=== PATIENT | male | born 1960 | race Caucasian/White ===

== ENCOUNTER 2016-07-21 12:56 | Day surgery (SDC) | payer BC ==
[2016-07-21 13:20] VITALS: BP 159/97; PULSE 85; RESP 19; TEMP 98.1; O2SAT 97
[2016-07-21] MEDS ORDERED: ULTR50TA5 PO (13:21)
[2016-07-21] MEDS ORDERED: FISHCAP4 PO (13:21)
[2016-07-21 13:39] VITALS: BP 140/93; PULSE 83; RESP 18; TEMP 98.1; O2SAT 97
--- NOTE | 2016-07-21 16:02 | RADRPT ---
EXAM DATE/TIME: 07/21/2016 13:41 [facility] COMPARISON: No previous studies available for comparison. INDICATIONS : Right knee pain and swelling. MEDICAL HISTORY : Deep venous thrombosis. SURGICAL HISTORY : Right total knee replacement. Rotator cuff repair. Carpal tunnel release. Bicep repair. Achilles tend on repair. ENCOUNTER: Initial ACUITY: > 1 yr PAIN SCORE: 2/10 LOCATION: Right knee. FLUID: Total volume of 7 cc of cloudy, yellow fluid was removed. Fluid was sent to lab for ordered studies. Post procedure scanning reveals no hematoma or other complication. TECHNIQUE: 1. Ultrasound guidance for needle aspiration. 2. Aspiration. The risks, benefits, and alternatives to ultrasound guided aspiration were explained to the patient i n detail including the risk of bleeding and infection. Written and verbal informed consent was obtai neena. With the patient on the ultrasound table, ultrasound imaging was used to select the most appropriate approach for aspiration. Overlying skin was prepped and draped in the usual sterile fashion and with local anesthetic a dermatotomy was made with an 11 blade scalpel. A catheter was introduced into th e cavity and fluid was collected. CONCLUSION: Uncomplicated ultrasound guided aspiration. Jt Aaron MD on July 21, 2016 at 16:00 Board Certified Radiologist. This report was verified electronically.
[2016-07-21 17:42] LABS: WBC, SYNOVIAL FLUID 16150 /MM3 (0-200)
== END 2016-07-21 15:00 | disposition home or self-care (01) ==
LOC: HRAD 12:56 → HRIP 13:00 → HRAD 15:00
PROVIDERS: ATTEND Orthopaedic Surgery
DX: M25.561 Pain in right knee (principal); T84.84XD Pain due to internal orthopedic prosthetic devices, implants and grafts, subsequent encounter; M25.461 Effusion, right knee
CPT/HCPCS: 10160; 20611; 76942; 87070; 87205; 89051; C1729

== ENCOUNTER 2017-07-18 09:52 | Inpatient (IN) | payer BC ==
[~2017-07-18] VITALS: Ht 177.8 cm; Wt 90.9 kg
[~2017-07-18 09:52] MED LIST: FISHCAP4 PO; TRAM50 PO; XARE20TA PO
[2017-07-18] MEDS ORDERED: SODIUM CHLORID 0.9% 500 ML IV PRN (10:15)
[2017-07-18] MEDS ORDERED: LACTATED RINGER'S 1000 ML IV PRN (10:15)
[2017-07-18] MEDS ORDERED: METOPROLOL TARTRATE 25 MG TAB PO PRN (10:15)
[2017-07-18] MEDS ORDERED: CHLORHEXIDINE GLUCONATE 2 % 1 PACK (2 CLOTHS) TOPICAL PRN (10:15)
[2017-07-18] MEDS ORDERED: ROPIVACAINE PERI-ARTICULAR INJECTION. P-ARTICULR SCH ×5 (10:15)
[2017-07-18] MEDS ORDERED: CHLORHEXIDINE GLUCONATE 4% SOLN 120 ML BTL TOPICAL SCH (10:15)
[2017-07-18] MEDS ORDERED: INSULIN HUMAN REGULAR 1,000 UNITS/10 ML VIAL SQ PRN (10:15)
[2017-07-18] MEDS ORDERED: POVIDONE IODINE 5% (ANTISEPSIS KIT) 4 APPLICATIONS EACH NARE PRN (10:15)
[2017-07-18] MEDS ORDERED: TOBRAMYCIN 1200 MG VIAL (for ortho/sterile core) OTHER ONE (10:40)
[2017-07-18] MEDS ORDERED: GENTAMICIN SULFATE 80 MG/2 ML VIAL ONE (10:40)
[2017-07-18] MEDS ORDERED: PROPOFOL 200 MG/20 ML AMP IV ONE (12:00)
[2017-07-18] MEDS ORDERED: ONDANSETRON HCL 4 MG/2 ML VIAL IV ONE (12:00)
[2017-07-18] MEDS ORDERED: LIDOCAINE HCL 1% PF 5 ML SYRINGE OTHER ONE (12:00)
[2017-07-18] MEDS ORDERED: ROCURONIUM INJ 50 MG/5 ML SYRINGE IV PUSH ONE (12:00)
[2017-07-18] MEDS ORDERED: PHENYLEPH/NS 1000 MCG/10 ML SYR IV ONE (12:00)
[2017-07-18] MEDS ORDERED: VANCOMYCIN HCL 1000 MG VIAL ONE ×3 (12:09→14:32)
[2017-07-18] MEDS ORDERED: ceFAZolin INJ 1,000 MG VIAL ONE (12:09)
[2017-07-18] MEDS ORDERED: BUPIVACAINE LIPOSOME PF 1.3% 20 ML VIAL ONE (13:43)
[2017-07-18] MEDS ORDERED: MIDAZOLAM HCL 2 MG/2 ML VIAL ONE (14:46)
[2017-07-18] MEDS ORDERED: MORPHINE SULFATE 4 MG/ML INJ ONE (14:46)
[2017-07-18] MEDS ORDERED: DO NOT ADM ANY ANTICOAGULANT DRUGS PRN (15:41)
[2017-07-18] MEDS ORDERED: WALKER WHEELS/F1 MIS (15:49)
--- NOTE | 2017-07-18 15:51 | HHI.FF ---
Face to Face Verification Diagnosis: (1) Infection of total knee replacement (2) Status post right partial knee replacement Physical Therapy Gait training, Transfer training, bed to chair Knee: Total knee, Other (50% wt bearing RLE ), Protocol: Right Right LE Weight Bearing: Partial WB 50% Left LE Weight Bearing: WB as tolerated Nursing RN: 3 days/week x 2 weeks Nursing: Dressing changes (clean with alcohol and apply dry sterile dressing ) Additional Instructions Pt/INR q Tuesday and for 2 weeks Goal INR 1.5-1.8 After two weeks, will resume pre op [place] I have seen patient Govind Cagle on 07/18/17. My clinical findings support the need for the requested home health care services because: High risk of falls I certify that my clinical findings support that this patient is homebound because: Post-op weakness Mike Dewey MD Jul 18, 2017 15:51
[2017-07-18] MEDS ORDERED: *MEPERIDINE 25 MG INJ VIAL PERIprocedural Use ONLY ONE (16:21)
--- NOTE | 2017-07-18 16:27 | RADRPT ---
EXAM DATE/TIME: 07/18/2017 16:01 [facility] COMPARISON: No previous studies available for comparison. INDICATIONS : Right knee prostheses removal and antibiotic placement. MEDICAL HISTORY : Deep venous thrombosis. SURGICAL HISTORY : Total knee replacement, right. ENCOUNTER: Initial ACUITY: 1 day PAIN SCORE: Non-responsive. LOCATION: Right Knee. FINDINGS: AP and lateral views of the right knee were obtained and demonstrate the patient status post arthropl asty. Femoral and tibial components are intact and in alignment. The components are cemented. There a re numerous small radiopaque beads present surrounding the joint space and in the suprapatella bursa region. There is diffuse osteopenia. CONCLUSION: Post surgical changes and placement of numerous small radiopaque beads. Ad Barrera MD on July 18, 2017 at 16:23 Board Certified Radiologist. This report was verified electronically.
--- NOTE | 2017-07-18 16:31 | MP ---
cc: Mike Dewey MD,Diego Hanson MD,Jaquelin AMBROCIO DATE OF OPERATION: 07/18/2017 PREOPERATIVE DIAGNOSES: 1. 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 2. Status post right total knee arthroplasty, 02/09/2012. 3. History of venous stasis dermatitis with cellulitis. POSTOPERATIVE DIAGNOSES: 1. 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 2. Status post right total knee arthroplasty, 02/09/2012. 3. History of venous stasis dermatitis with cellulitis. PROCEDURE PERFORMED: Right knee removal of total knee arthroplasty; incision and drainage of deep abscess, opening of distal femur and proximal tibial bone; insertion of antibiotic spacer prostheses. SURGEON: Mike Dewey MD VARNISH THINNER: Maria Victoria Purcell PA-C TOURNIQUET TIME: 1 hour and 47 minutes at 250 mmHg. SPECIMENS: Multiple. See the chart. ESTIMATED BLOOD LOSS: 100 mL. COMPLICATIONS: None. ANESTHESIA: General, adductor canal regional block, intra-articular local block. PROCEDURE: My habilitation assistant, Maria Victoria Purcell PA-C was present for the entire surgical case. She was medically necessary for the entire case because of the complexity of the case and to facilitate the performance of the procedure. The LAUNDERER HAND was at the back table was not of skill set for this case to manipulate the instruments; e.g., the multiple different types of soft tissue retractors, removal of the total knee arthroplasty prosthesis, and insertion of the Remedy femoral component and the Remedy tibial component with the bone cement and also the insertion of the calcium sulfate antibiotic beads. The patient was brought to the operating room, had satisfactory anesthesia by the department of anesthesia. Right lower extremity was prepped and draped in the usual manner. The extremity was exsanguinated by elevation and tourniquet inflated to 250 mmHg. Patient had a moderately large anterior wound that had just started draining last night. This was anteromedial to the patella. This was surgically excised elliptically. Sent to pathology for final histological diagnosis. Then further anterior and further proximal and distal extension of the wound was made. Paramedian capsulotomy was performed. The patient was found to have a grossly loose, failed patellar component. This was removed, as was the underlying bone cement. Surrounding soft tissues were sent for final microbiology. This was for Gram stain, aerobic and anaerobic cultures and sensitivities, and fungal smear and culture. Synovitis was in the suprapatellar pouch. The pouch was surgically excised. This was also sent for Gram stain, aerobic, anaerobic culture and sensitivities, fungal smear and cultures. Using the [place] revisional total joint arthroplasty system, flexible osteotomes were used to go around the distal femur and the femoral component was removed without difficulty. No bone was taken off with the prosthesis. The patient was found to have a large cavernous lesion in the pegged portion of the medial femoral condyle and to a lesser degree on the lateral femoral condyle. This was a posterior stabilized type femoral component. Bone cultures were taken from the distal femur. Again, this was sent for Gram stain, aerobic, anaerobic culture and sensitivities with fungal smear and culture. The soft tissue dissection was carried around the proximal tibia and the tibial component was removed without difficulty. Again, soft tissue bone cultures were taken from the proximal tibia. They were sent for aerobic and anaerobic cultures and sensitivities and fungal smear and culture. All loose bone cement and all well-fixated bone cement was meticulously removed from the proximal tibia and also from the distal femur and the undersurface of the patella. Extensive soft tissue debridements were also made with complete synovectomy. The knee was then irrigated with 9000 mL of sterile saline antibiotic solution using Waterpik irrigation system. At this time, it was felt to use the Osteo[employer]edies spacer with a distal femoral component, which was a medium. This is in the proximal tibial component, which was also medium. Two packages of bone cement, Unite AB bone cement with added 2 grams of vancomycin were made for the cement. First, the tibial component was cemented and then followed by the femoral component. The bone cement was allowed to harden for 12 minutes. All excess bone cement was removed. Also added calcium sulfate antibiotic beads, added additional 2 grams of vancomycin. These were then placed adjacent to the prosthesis medially and laterally and then the suprapatellar pouch, but we stayed out of the articulating component of the revised knee arthroplasty. The wound was closed in a routine manner. The extensor mechanism and quadriceps mechanism was repaired using multiple interrupted #1 PDS suture. The skin and subcutaneous tissue was closed in layers using #1 Prolene and 2-0 nylon. Tourniquet was deflated. Sterile dressings were applied. The patient tolerated the procedure well and left for the recovery room in stable and satisfactory condition. MD TYRON Moss/BULMARO , 03:37 PM , 04:29 PM
[2017-07-18] MEDS ORDERED: ONDANSETRON HCL 4 MG/2 ML VIAL IVP PRN (16:45)
[2017-07-18] MEDS ORDERED: ACETAMINOPHEN/HYDROcodone 325 MG/7.5 MG TAB PO PRN (16:45)
[2017-07-18] MEDS ORDERED: ALUMINUM/MAGNESIUM/SIMETH 30 ML CUP PO PRN (16:45)
[2017-07-18] MEDS ORDERED: *morphine SULFATE 4 MG/ML PERIprocedure ONLY ONE ×2 (16:58→18:11)
[2017-07-18] MEDS ORDERED: Post-op Orders (for Pharmacy) XX ONE (17:00)
[2017-07-18] MEDS: ACETAMINOPHEN/HYDROcodone 325 MG/7.5 MG TAB PO PRN ×2 (17:03→20:22)
[2017-07-18] MEDS: LACTATED RINGER'S 1000 ML INJ 1,000 ML IV SCH (17:09)
[2017-07-18] MEDS ORDERED: ZOLPIDEM TARTRATE 5 MG TAB PO PRN (21:00)
[2017-07-18 23:40] VITALS: BP 114/60; PULSE 88; RESP 18; TEMP 98.6; O2SAT 98
--- NOTE | 2017-07-19 00:03 | EKG ---
Date Performed: 07/18/2017 Time Performed: 10:22:42 PTAGE: 57 years EKG: Sinus rhythm NORMAL ECG NO PREVIOUS TRACING DOCTOR: Tena Castellanos Interpretating Date/Time 07/18/2017 23:59:26
[2017-07-19] MEDS: ACETAMINOPHEN/HYDROcodone 325 MG/7.5 MG TAB PO PRN ×5 (02:31→20:04)
[2017-07-19 03:31] VITALS: BP 134/70; PULSE 97; RESP 18; TEMP 98.4; O2SAT 98
[2017-07-19] MEDS: MORPHINE SULFATE 8 MG/ML INJ IV PUSH PRN ×5 (03:56→21:48)
[2017-07-19] MEDS: LACTATED RINGER'S 1000 ML INJ 1,000 ML IV SCH ×2 (04:35→21:50)
[2017-07-19 06:00] LABS: INTERNATIONAL NORMALIZED RATIO 1.1 RATIO; PROTHROMBIN TIME - PATIENT 10.9 SEC (9.8-11.6)
[2017-07-19 08:00] VITALS: BP 124/64; PULSE 88; RESP 17; TEMP 98.1; O2SAT 95
--- NOTE | 2017-07-19 11:10 | PD.ORT.PN ---
Subjective Subjective Remarks POD#1 R Knee removal TK; I&D; Insertion antibiotic spacer/prosthesis C/O post-op pain No chest pain;no sob Explained at length to patient,,and daughter operative findings and planned post operative treatment Objective Vitals Vital Signs Date Time Temp Pulse Resp B/P (MAP) Pulse Ox O2 Delivery O2 Flow Rate FiO2 07/19/17 08:00 98.1 88 17 124/64 (84) 95 07/19/17 03:31 98.4 97 18 134/70 (91) 98 07/18/17 23:40 98.6 88 18 114/60 (78) 98 07/18/17 21:58 93 20 116/62 (80) 94 Room Air 07/18/17 21:54 16 07/18/17 21:00 93 20 113/58 (76) 95 Room Air 07/18/17 20:30 93 20 113/58 (76) 95 Room Air 07/18/17 20:15 95 20 116/72 (87) 95 Room Air 07/18/17 20:00 98.0 96 16 112/77 (89) 98 Nasal Cannula 2 07/18/17 19:00 97 16 113/70 (84) 100 Nasal Cannula 2 07/18/17 18:00 98.1 101 20 141/81 (101) 100 Nasal Cannula 2 07/18/17 17:00 95 15 155/87 (109) 99 Nasal Cannula 2 07/18/17 16:30 100 17 139/80 (99) 92 Nasal Cannula 4 07/18/17 16:15 101 16 154/95 (114) 93 Nasal Cannula 4 07/18/17 16:00 104 17 144/87 (106) 93 Nasal Cannula 4 07/18/17 15:41 98.2 102 20 142/91 (108) 92 Simple Mask 6 I/O 07/18/17 07/18/17 07/18/17 07/19/17 07/19/17 07/19/17 07:00 15:00 23:00 07:00 15:00 23:00 Intake Total 2150 ml 480 ml 100 ml Output Total 50 ml Balance 2100 ml 480 ml 100 ml Intake Oral 150 ml 480 ml IV Total 2000 ml 100 ml Output Estimated Blood Loss 50 ml # Voids 1 # Bowel Movements 0 Other Results Laboratory Tests Test 07/19/17 05:32 Prothromb Time International Ratio 1.1 RATIO Prothrombin Time 10.9 SEC (9.8-11.6) Imaging Last 24 hours Impressions Knee X-Ray 07/18/17 1533 Signed Impressions: Service Date/Time: Tuesday, July 18, 2017 16:01 - CONCLUSION: Post surgical changes and placement of numerous small radiopaque beads. Ad Barrera MD Objective Remarks N/V intact No calf tenderness;neg quintin's Dressings dry Assessment & Plan Assessment and Plan Ortho stable Coumadin,TEDS for DVT/PE prophylaxsis Await ID consultations/evaluations PT/Rehab; R LE 50% WBA Poss PICC line in future per ID Mike Dewey MD Jul 19, 2017 11:10
[2017-07-19 12:00] VITALS: BP 139/80; PULSE 92; RESP 17; TEMP 98.4; O2SAT 94
[2017-07-19] MEDS ORDERED: VANCOMYCIN INJ 1,000 MG in SODIUM CHLOR 0.9% 250 ML INJ 250 ML IV ONE (13:00)
[2017-07-19] MEDS ORDERED: Vancomycin Consult Pharmacy 1 EA OTHER SCH (13:00)
--- NOTE | 2017-07-19 13:00 | PD.CONS ---
History of Present Illness Service Infectious disease Consult Requested By Dr. Mike Dewey Reason for Consult Evaluate patient with probable infected right total knee arthroplasty, assist with antibiotic management Primary Care Physician Diego Butts MD Diagnoses: History of Present Illness Patient seen and examined. Records reviewed. Patient is a 57-year-old male, admitted to the hospital for surgery on his right knee. He has had total knee arthroplasty in 2011, and apparently he's always had swelling in his right knee. Has not given him any problem. Last year he has had problem with stasis dermatitis in his right lower extremity and has been treated for cellulitis. He was going to the wound care center in [place], with no significant improvement, and switch to the [facility], and there was resolution of his problem. The patient since that time he started noticing a swollen area or lump on his right knee around February. He went to an orthopedic surgeon, and apparently had excision of the mass, or cyst around March. He also has had multiple aspirations of the cyst, with rapid reaccumulation of the fluid. The area would be painful, but he has not seen any redness. He denies any fever or chills or sweats. Has not had any respiratory, GI or any urinary complaints. He has not really had any trauma or fall resulting in injury to his right knee after he had his arthroplasty. He has been on several antibiotics including Keflex and Cipro. The last time he was on antibiotic was most likely more than 2 weeks ago. There was an outpatient wound culture from May that had MRSA, and pseudomonas aeruginosa. Last week he had complete drainage of the cyst, and cultures of that are negative so far. He had reaccumulation of the fluid, and the patient was brought into the hospital for further management. He underwent surgery and had removal of the prosthesis, as well as placement of an antibiotic spacer. He had some blood work preop, and he is WBC is normal, sedimentation rate is 19. He is afebrile currently. Infectious disease consultation has been requested to evaluate the patient and assist with antibiotic management. Review of Systems Constitutional: DENIES: Fever, Chills, Night Sweats Eyes: DENIES: Eye pain Ears, nose, mouth, throat: DENIES: Nasal discharge, Oral lesions, Throat pain, Hoarseness, Sinus Pain Respiratory: DENIES: Cough, Shortness of breath Cardiovascular: DENIES: Chest pain, Palpitations, Syncope, Dyspnea on Exertion Gastrointestinal: DENIES: Abdominal pain, Constipation, Diarrhea, Nausea, Vomiting Genitourinary: COMPLAINS OF: Urgency, DENIES: Hematuria, Dysuria, Nocturia Musculoskeletal: COMPLAINS OF: Joint pain, Joint Swelling, DENIES: Neck pain Integumentary: DENIES: Rash Neurologic: DENIES: Localized weakness Psychiatric: DENIES: Hallucinations (`) Past Family Social History Allergies: Coded Allergies: No Known Allergies (Verified Allergy, Unknown, 07/18/17) Past Medical History PE DVT Past Surgical History Laser procedure on the right leg Bilateral carpal tunnel release Right total knee arthroplasty Right knee meniscectomy Bilateral shoulder rotator cuff repairs Active Ordered Medications Current Medications Medications (Trade) Dose Ordered Sig/Pat Route Start Time Stop Time Status Last Admin Lactated Ringer's 1,000 ml @ 30 mls/hr Q24H PRN IV 07/18/17 10:15 07/21/17 10:14 Sodium Chloride 500 ml @ 30 mls/hr [id number] PRN IV 07/18/17 10:15 07/21/17 10:14 (Lopressor) 25 mg [employer] PRN PO 07/18/17 10:15 07/21/17 10:14 (Betadine 5% Antisepsis Kit) 1 applic [employer] PRN EACH NARE 07/18/17 10:15 07/21/17 10:14 (Chlorhexidine 2% Cloth) 3 pack [employer] PRN TOPICAL 07/18/17 10:15 07/21/17 10:14 (NovoLIN R INJ) See Protocol Table ... [employer] PRN SQ 07/18/17 10:15 07/21/17 10:14 (Hibiclens 4% Top Soln) 1 applic ONCE TOPICAL 07/18/17 10:15 07/21/17 10:14 Lactated Ringer's 1,000 ml @ 80 mls/hr [id number] IV 07/18/17 16:45 07/18/17 17:09 (Morphine Inj) 5 mg Q3H PRN IV PUSH 07/18/17 16:45 07/19/17 12:32 (Willow 7.5-325 Mg) 1 tab Q4H PRN PO 07/18/17 16:45 (Willow 7.5-325 Mg) 2 tab Q4H PRN PO 07/18/17 16:45 07/19/17 10:25 (Zofran Inj) 4 mg Q6H PRN IVP 07/18/17 16:45 (Mag-Al Plus Susp Liq) 30 ml Q6H PRN PO 07/18/17 16:45 (Ambien) 5 mg HS PRN PO 07/18/17 21:00 Miscellaneous Information ALL NURSING DEPARTME... UNSCH PRN .XX 07/18/17 15:41 07/19/17 15:40 (Coumadin) 7.5 mg ONCE ONCE PO 07/19/17 16:00 07/19/17 16:01 Family History Noncontributory Social History No smoking No alcohol abuse No illicit drugs Physical Exam Vital Signs Vital Signs Date Time Temp Pulse Resp B/P (MAP) Pulse Ox O2 Delivery O2 Flow Rate FiO2 07/19/17 12:00 98.4 92 17 139/80 (99) 94 07/19/17 08:00 98.1 88 17 124/64 (84) 95 07/19/17 03:31 98.4 97 18 134/70 (91) 98 07/18/17 23:40 98.6 88 18 114/60 (78) 98 07/18/17 21:58 93 20 116/62 (80) 94 Room Air 07/18/17 21:54 16 07/18/17 21:00 93 20 113/58 (76) 95 Room Air 07/18/17 20:30 93 20 113/58 (76) 95 Room Air 07/18/17 20:15 95 20 116/72 (87) 95 Room Air 07/18/17 20:00 98.0 96 16 112/77 (89) 98 Nasal Cannula 2 07/18/17 19:00 97 16 113/70 (84) 100 Nasal Cannula 2 07/18/17 18:00 98.1 101 20 141/81 (101) 100 Nasal Cannula 2 07/18/17 17:00 95 15 155/87 (109) 99 Nasal Cannula 2 07/18/17 16:30 100 17 139/80 (99) 92 Nasal Cannula 4 07/18/17 16:15 101 16 154/95 (114) 93 Nasal Cannula 4 07/18/17 16:00 104 17 144/87 (106) 93 Nasal Cannula 4 07/18/17 15:41 98.2 102 20 142/91 (108) 92 Simple Mask 6 Physical Exam GENERAL: Patient is a well-nourished, well-developed male, awake and alert, not in respiratory distress. SKIN: Cool and dry. No generalized rash, no ecchymoses and no evidence of embolic lesions. HEAD: Atraumatic. Normocephalic. No temporal wasting, or tenderness. EYES: Howard conjunctiva. No petechia or hemorrhage. Pupils equal, round and reactive to light. Extraocular movements full and intact. No scleral icterus. No injection or drainage. EARS, NOSE AND THROAT: Nose without bleeding or purulent nasal discharge. No sinus tenderness. Mucous membranes pink and moist. No oral lesions noted. No exudate. No oral thrush. NECK: Trachea midline. Supple and not tender, no meningeal signs CARDIOVASCULAR: Regular rate and rhythm. No murmurs, rubs or gallops heard RESPIRATORY: Clear to auscultation. Breath sounds equal bilaterally. No rales , wheezing or rhonchi ABDOMEN: Soft, non-tender, nondistended. Bowel sounds present and normoactive. No guarding. No rebound. No organomegaly. EXTREMITIES: No clubbing, cyanosis. Has dressing in his whole RLE, with some breakthrough bleeding medially and laterally at the knee level. LLE: no edema or cyanosis, or calf tenderness. Some small varicosities in L foot, and brownish pigmentation in his L leg. NEUROLOGICAL: Awake and alert. Cranial nerves grossly intact. Motor grossly within normal limits. PSYCHIATRIC: Normal affect, calm and cooperative. LINE: No evidence of infection Laboratory Laboratory Tests Test 07/19/17 05:32 Prothrombin Time 10.9 Prothromb Time International Ratio 1.1 Date/Time Source Procedure Growth Status 07/18/17 00:00 Wound Knee Acid Fast Stain Pending Received 07/18/17 00:00 Wound Knee Mycobacterial Culture Pending Received Imaging Last Impressions Knee X-Ray 07/18/17 1923 Signed Impressions: Service Date/Time: Tuesday, July 18, 2017 16:01 - CONCLUSION: Post surgical changes and placement of numerous small radiopaque beads. 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
[2017-07-19 13:58] LABS: HEMATOCRIT 38.9 % (39.0-51.0); HEMOGLOBIN 13.3 GM/DL (13.0-17.0)
[2017-07-19 14:23] LABS: CREATININE 0.84 MG/DL (0.60-1.30)
[2017-07-19] MEDS ORDERED: VANCOMYCIN INJ 1,750 MG in SODIUM CHLORID 0.9% 500 ML INJ 500 ML IV SCH (15:00)
[2017-07-19] MEDS: KETOROLAC TROMETHAMINE 10 MG TAB PO PRN (15:42)
[2017-07-19] MEDS: CEFEPIME INJ 2,000 MG in SODIUM CHLORIDE 0.9% INJ 100 ML IV SCH ×2 (15:43→21:49)
[2017-07-19 16:00] VITALS: BP 134/80; PULSE 95; RESP 17; TEMP 98.5; O2SAT 95
[2017-07-19] MEDS ORDERED: WARFARIN SOD 7.5 MG TAB PO ONE (16:00)
[2017-07-19] MEDS: VANCOMYCIN INJ 1,750 MG in SODIUM CHLORID 0.9% 500 ML INJ 500 ML IV SCH (18:00)
[2017-07-19 19:00] VITALS: BP 148/86; PULSE 96; RESP 18; TEMP 99; O2SAT 95
[2017-07-20] VITALS (7 sets, daily range): BP systolic 121–143; BP diastolic 65–87; PULSE 84–103; RESP 17–18; TEMP 98–99; O2SAT 95–97
[2017-07-20] MEDS: ACETAMINOPHEN/HYDROcodone 325 MG/7.5 MG TAB PO PRN ×6 (00:22→23:13)
[2017-07-20] MEDS: MORPHINE SULFATE 8 MG/ML INJ IV PUSH PRN (02:45)
[2017-07-20] MEDS: KETOROLAC TROMETHAMINE 10 MG TAB PO PRN (02:45)
[2017-07-20] MEDS: CEFEPIME INJ 2,000 MG in SODIUM CHLORIDE 0.9% INJ 100 ML IV SCH ×3 (05:16→22:23)
[2017-07-20] MEDS: LACTATED RINGER'S 1000 ML INJ 1,000 ML IV SCH ×2 (06:15→18:43)
[2017-07-20] MEDS: VANCOMYCIN INJ 1,750 MG in SODIUM CHLORID 0.9% 500 ML INJ 500 ML IV SCH ×2 (06:19→18:41)
[2017-07-20 06:37] LABS: INTERNATIONAL NORMALIZED RATIO 1.2 RATIO; PROTHROMBIN TIME - PATIENT 11.8 SEC (9.8-11.6)
[2017-07-20 06:46] LABS: ALBUMIN 2.7 GM/DL (3.4-5.0); AST (GOT) 10 U/L (15-37); BICARBONATE 26.1 MEQ/L (21.0-32.0); BLOOD UREA NITROGEN 10 MG/DL (7-18); CALCIUM 8.8 MG/DL (8.5-10.1); CHLORIDE 103 MEQ/L (98-107); CREATININE 0.75 MG/DL (0.60-1.30); GLOMERULAR FILTRATION RATE 107 ML/MIN (>89); GLUCOSE,RANDOM 89 MG/DL (74-106); SODIUM (NA) 137 MEQ/L (136-145)
[2017-07-20 06:48] LABS: ALT (GPT) 12 U/L (12-78)
[2017-07-20 06:51] LABS: AUTOMATED NEUTROPHIL # 6.4 TH/MM3 (1.8-7.7); BASOPHIL % 0.5 % (0.0-2.0); EOSINOPHIL # 0.3 TH/MM3 (0-0.4); EOSINOPHIL % 3.6 % (0.0-4.0); HEMATOCRIT 39.9 % (39.0-51.0); HEMOGLOBIN 13.5 GM/DL (13.0-17.0); LYMPH % 15.3 % (9.0-44.0); LYMPHOCYTE # 1.4 TH/MM3 (1.0-4.8); MEAN CELL VOLUME 86.8 FL (80.0-100.0); MEAN CORPUSCULAR HEMOGLOBIN 29.3 PG (27.0-34.0); MEAN CORPUSCULAR HGB CONC 33.8 % (32.0-36.0); MEAN PLATELET VOLUME 7.7 FL (7.0-11.0); MONOCYTE # 0.9 TH/MM3 (0-0.9); NEUT % 70.6 % (16.0-70.0); PLATELET COUNT 212 TH/MM3 (150-450); RED BLOOD COUNT 4.59 MIL/MM3 (4.50-5.90); WHITE BLOOD COUNT 9.1 TH/MM3 (4.0-11.0)
[2017-07-20 06:54] LABS: ALKALINE PHOSPHATASE 77 U/L (45-117); TOTAL BILIRUBIN ADULT 0.6 MG/DL (0.2-1.0); TOTAL PROTEIN 6.3 GM/DL (6.4-8.2)
--- NOTE | 2017-07-20 07:41 | PD.ORT.PN ---
Subjective Subjective Remarks pt doing well, no complaints Objective Vitals Vital Signs Date Time Temp Pulse Resp B/P (MAP) Pulse Ox O2 Delivery O2 Flow Rate FiO2 07/20/17 05:16 98.2 95 18 143/87 (105) 97 07/20/17 00:55 98.0 94 18 121/65 (83) 96 07/19/17 19:00 99.0 96 18 148/86 (106) 95 07/19/17 16:00 98.5 95 17 134/80 (98) 95 07/19/17 12:00 98.4 92 17 139/80 (99) 94 07/19/17 08:00 98.1 88 17 124/64 (84) 95 I/O 07/19/17 07/19/17 07/19/17 07/20/17 07/20/17 07/20/17 07:00 15:00 23:00 07:00 15:00 23:00 Intake Total 480 ml 580 ml 967 ml 569 ml Output Total 400 ml Balance 480 ml 580 ml 967 ml 169 ml Intake Oral 480 ml 480 ml 240 ml IV Total 100 ml 967 ml 329 ml Output Urine Total 400 ml # Voids 1 3 # Bowel Movements 0 0 0 Result Diagram: 07/20/17 0533 07/20/17 0533 Other Results Laboratory Tests Test 07/20/17 05:33 Prothromb Time International Ratio 1.2 RATIO Prothrombin Time 11.8 SEC (9.8-11.6) Imaging Last 24 hours Impressions Knee X-Ray 07/18/17 1533 Signed Impressions: Service Date/Time: Tuesday, July 18, 2017 16:01 - CONCLUSION: Post surgical changes and placement of numerous small radiopaque beads. Ad Barrera MD Objective Remarks right knee dressing dry and intact, ice in place N/V intact No calf tenderness;neg quintin's Assessment & Plan Assessment and Plan POD # 2 s/p removal R knee prosthesis and insertion of abx spacer Ortho stable Coumadin,TEDS for DVT/PE prophylaxsis Antibiotics per I.D. ; follow cultures, no growth at 24 hrs PT/Rehab; R LE 50% WB Poss PICC line in future per Maria Victoria Bennett Jul 20, 2017 07:41
--- NOTE | 2017-07-20 10:37 | HHI.IDPN ---
Subjective Subjective Remarks Patient is a 57-year-old male, admitted to the hospital for surgery on his right knee. He has had total knee arthroplasty in 2011, and apparently he's always had swelling in his right knee. Has not given him any problem. Last year he has had problem with stasis dermatitis in his right lower extremity and has been treated for cellulitis. He was going to the wound care center in [place], with no significant improvement, and switch to the [facility], and there was resolution of his problem. The patient since that time he started noticing a swollen area or lump on his right knee around February. He went to an orthopedic surgeon, and apparently had excision of the mass, or cyst around March. He also has had multiple aspirations of the cyst, with rapid reaccumulation of the fluid. The area would be painful, but he has not seen any redness. He denies any fever or chills or sweats. Has not had any respiratory, GI or any urinary complaints. He has not really had any trauma or fall resulting in injury to his right knee after he had his arthroplasty. He has been on several antibiotics including Keflex and Cipro. The last time he was on antibiotic was most likely more than 2 weeks ago. There was an outpatient wound culture from May that had MRSA, and pseudomonas aeruginosa. Last week he had complete drainage of the cyst, and cultures of that are negative so far. He had reaccumulation of the fluid, and the patient was brought into the hospital for further management. He underwent surgery and had removal of the prosthesis, as well as placement of an antibiotic spacer. He had some blood work preop, and he is WBC is normal, sedimentation rate is 19. He is afebrile currently. Infectious disease consultation has been requested to evaluate the patient and assist with antibiotic management. Notes reviewed Temps ok On pain meds No N/V No rash/itching No diarrhea Tolerating Abx C/S negative so far Path report pending ESR 37 CRP 17 WBC normal Antibiotics Vancomycin Cefepime Current Medications Medications (Trade) Dose Ordered Sig/Pat Route Start Time Stop Time Status Last Admin Lactated Ringer's 1,000 ml @ 30 mls/hr Q24H PRN IV 07/18/17 10:15 07/21/17 10:14 Sodium Chloride 500 ml @ 30 mls/hr [id number] PRN IV 07/18/17 10:15 07/21/17 10:14 (Lopressor) 25 mg MATERIAL MOVERS PRN PO 07/18/17 10:15 07/21/17 10:14 (Betadine 5% Antisepsis Kit) 1 applic MATERIAL MOVERS PRN EACH NARE 07/18/17 10:15 07/21/17 10:14 (Chlorhexidine 2% Cloth) 3 pack MATERIAL MOVERS PRN TOPICAL 07/18/17 10:15 07/21/17 10:14 (NovoLIN R INJ) See Protocol Table ... MATERIAL MOVERS PRN SQ 07/18/17 10:15 07/21/17 10:14 (Hibiclens 4% Top Soln) 1 applic ONCE TOPICAL 07/18/17 10:15 07/21/17 10:14 Lactated Ringer's 1,000 ml @ 80 mls/hr [id number] IV 07/18/17 16:45 07/19/17 21:50 (Morphine Inj) 5 mg Q3H PRN IV PUSH 07/18/17 16:45 07/20/17 02:45 ([place] 7.5-325 Mg) 1 tab Q4H PRN PO 07/18/17 16:45 ([place] 7.5-325 Mg) 2 tab Q4H PRN PO 07/18/17 16:45 07/20/17 09:32 (Zofran Inj) 4 mg Q6H PRN IVP 07/18/17 16:45 (Mag-Al Plus Susp Liq) 30 ml Q6H PRN PO 07/18/17 16:45 (Ambien) 5 mg HS PRN PO 07/18/17 21:00 (Toradol) 10 mg Q6H PRN PO 07/19/17 13:15 07/24/17 13:14 07/20/17 02:45 Pharmacy Profile Note 0 ml @ 0 mls/hr UNSCH OTHER 07/19/17 13:00 Cefepime HCl 2000 mg/Sodium Chloride 100 ml @ 200 mls/hr Q8H IV 07/19/17 14:00 07/20/17 05:16 (Coumadin) SEE PROTOCOL TABLE ... DAILY@1600 PO 07/20/17 16:00 Vancomycin HCl 1750 mg/Sodium Chloride 517.5 ml @ 250 mls/hr Q12H IV 07/19/17 18:00 07/20/17 06:19 Miscellaneous Information SPECIFIC LAB TO BE DRAWN:VANCOMYCIN TROUGH DATE TO... ONCE ONCE .XX 07/21/17 05:45 07/21/17 05:46 Lines PIV Past Medical History PE DVT Past Surgical History Laser procedure on the right leg Bilateral carpal tunnel release Right total knee arthroplasty Right knee meniscectomy Bilateral shoulder rotator cuff repairs Allergies: Coded Allergies: No Known Allergies (Verified Allergy, Unknown, 07/18/17) Objective . Vital Signs Date Time Temp Pulse Resp B/P (MAP) Pulse Ox O2 Delivery O2 Flow Rate FiO2 07/20/17 07:59 98.1 84 17 136/70 (92) 95 07/20/17 05:16 98.2 95 18 143/87 (105) 97 07/20/17 00:55 98.0 94 18 121/65 (83) 96 07/19/17 19:00 99.0 96 18 148/86 (106) 95 07/19/17 16:00 98.5 95 17 134/80 (98) 95 07/19/17 12:00 98.4 92 17 139/80 (99) 94 . Laboratory Tests Test 07/19/17 13:41 07/20/17 05:33 Hemoglobin 13.3 GM/DL 13.5 GM/DL Hematocrit 38.9 % 39.9 % White Blood Count 9.1 TH/MM3 Red Blood Count 4.59 MIL/MM3 Mean Corpuscular Volume 86.8 FL Mean Corpuscular Hemoglobin 29.3 PG Mean Corpuscular Hemoglobin Concent 33.8 % Red Cell Distribution Width 14.0 % Platelet Count 212 TH/MM3 Mean Platelet Volume 7.7 FL Neutrophils (%) (Auto) 70.6 % Lymphocytes (%) (Auto) 15.3 % Monocytes (%) (Auto) 10.0 % Eosinophils (%) (Auto) 3.6 % Basophils (%) (Auto) 0.5 % Neutrophils # (Auto) 6.4 TH/MM3 Lymphocytes # (Auto) 1.4 TH/MM3 Monocytes # (Auto) 0.9 TH/MM3 Eosinophils # (Auto) 0.3 TH/MM3 Basophils # (Auto) 0.0 TH/MM3 CBC Comment DIFF FINAL Differential Comment Erythrocyte Sedimentation Rate 37 mm/hr Laboratory Tests Test 07/19/17 13:41 07/20/17 05:33 Creatinine 0.84 MG/DL 0.75 MG/DL Estimat Glomerular Filtration Rate 94 ML/MIN 107 ML/MIN Blood Urea Nitrogen 10 MG/DL Random Glucose 89 MG/DL Total Protein 6.3 GM/DL Albumin 2.7 GM/DL Calcium Level 8.8 MG/DL Alkaline Phosphatase 77 U/L Aspartate Amino Transf (AST/SGOT) 10 U/L Alanine Aminotransferase (ALT/SGPT) 12 U/L Total Bilirubin 0.6 MG/DL Sodium Level 137 MEQ/L Potassium Level 4.4 MEQ/L Chloride Level 103 MEQ/L Carbon Dioxide Level 26.1 MEQ/L Anion Gap 8 MEQ/L C-Reactive Protein 17.00 MG/DL Microbiology Date/Time Source Procedure Growth Status 07/18/17 00:00 Wound Knee Acid Fast Stain Pending Received 07/18/17 00:00 Wound Knee Mycobacterial Culture Pending Received 07/18/17 00:00 Wound Knee Acid Fast Stain Pending Received 07/18/17 00:00 Wound Knee Mycobacterial Culture Pending Received 07/18/17 00:00 Wound Bone Acid Fast Stain Pending Received 07/18/17 00:00 Wound Bone Mycobacterial Culture Pending Received 07/18/17 00:00 Wound Bone Gram Stain - Final Resulted 07/18/17 00:00 Wound Bone Wound Culture - Preliminary NO GROWTH IN 24 HOURS. Resulted 07/18/17 00:00 Wound Knee Acid Fast Stain Pending Received 07/18/17 00:00 Wound Knee Mycobacterial Culture Pending Received 07/18/17 00:00 Wound Knee Acid Fast Stain Pending Received 07/18/17 00:00 Wound Knee Mycobacterial Culture Pending Received 07/18/17 00:00 Wound Other Acid Fast Stain Pending Received 07/18/17 00:00 Wound Other Mycobacterial Culture Pending Received 07/18/17 00:00 Wound Other Fungal Smear - Final NO FUNGAL ELEMENTS SEEN. Resulted 07/18/17 00:00 Wound Other Fungal Culture Pending Resulted 07/18/17 00:00 Wound Other Gram Stain - Final Resulted 07/18/17 00:00 Wound Other Wound Culture - Preliminary NO GROWTH IN 24 HOURS. Resulted 07/18/17 00:00 Wound Other Fungal Smear - Final NO FUNGAL ELEMENTS SEEN. Resulted 07/18/17 00:00 Wound Other Fungal Culture Pending Resulted 07/18/17 00:00 Wound Knee Fungal Smear - Final NO FUNGAL ELEMENTS SEEN. Resulted 07/18/17 00:00 Wound Knee Fungal Culture Pending Resulted 07/18/17 00:00 Wound Knee Gram Stain - Final Resulted 07/18/17 00:00 Wound Knee Wound Culture - Preliminary NO GROWTH IN 24 HOURS. Resulted 07/18/17 00:00 Wound Knee Fungal Smear - Final NO FUNGAL ELEMENTS SEEN. Resulted 07/18/17 00:00 Wound Knee Fungal Culture Pending Resulted 07/18/17 00:00 Wound Knee Gram Stain - Final Resulted 07/18/17 00:00 Wound Knee Wound Culture - Preliminary NO GROWTH IN 24 HOURS. Resulted 07/18/17 00:00 Wound Knee Fungal Smear - Final NO FUNGAL ELEMENTS SEEN. Resulted 07/18/17 00:00 Wound Knee Fungal Culture Pending Resulted 07/18/17 00:00 Wound Knee Gram Stain - Final Resulted 07/18/17 00:00 Wound Knee Wound Culture - Preliminary NO GROWTH IN 24 HOURS. Resulted 07/18/17 00:00 Wound Knee Fungal Smear - Final NO FUNGAL ELEMENTS SEEN. Resulted 07/18/17 00:00 Wound Knee Fungal Culture Pending Resulted 07/18/17 00:00 Wound Knee Gram Stain - Final Resulted 07/18/17 00:00 Wound Knee Wound Culture - Preliminary NO GROWTH IN 24 HOURS. Resulted Imaging Last Impressions Knee X-Ray 07/18/17 1533 Signed Impressions: Service Date/Time: Tuesday, July 18, 2017 16:01 - CONCLUSION: Post surgical changes and placement of numerous small radiopaque beads. Ad Barrera MD Physical Exam GENERAL: awake and alert, NAD SKIN: No generalized rash, cool and dry. HEAD: Atraumatic. Normocephalic. No temporal wasting, or tenderness. EYES: [place] conjunctiva. No petechia or hemorrhage. Pupils equal, round and reactive to light. Extraocular movements full and intact. No scleral icterus. No injection or drainage. EARS, NOSE AND THROAT: Nose without bleeding or purulent nasal discharge. No sinus tenderness. Mucous membranes pink and moist. No oral lesions noted. No exudate. No oral thrush. NECK: Trachea midline. Supple and not tender, no meningeal signs CARDIOVASCULAR: Regular rate and rhythm. No murmurs, rubs or gallops heard RESPIRATORY: Clear to auscultation. Breath sounds equal bilaterally. No rales , wheezing or rhonchi ABDOMEN: Soft, non-tender, nondistended. Bowel sounds present and normoactive. No guarding. No rebound. No organomegaly. EXTREMITIES: No clubbing, cyanosis. RLE larger than LLE. No open wounds; has nrpwnish pigmentation in L leg. Knee incision is dry, swollen knee. LLE : no edema or cyanosis, or calf tenderness. Some small varicosities in L foot, and brownish pigmentation in his L leg. NEUROLOGICAL: Non-focal PSYCHIATRIC: Normal affect, calm and cooperative. 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
[2017-07-20] MEDS: WARFARIN SOD 5 MG TAB PO SCH (16:34)
[2017-07-21] MEDS ORDERED: PHARMACY ORDERED LAB ONE (02:45)
[2017-07-21] MEDS: ACETAMINOPHEN/HYDROcodone 325 MG/7.5 MG TAB PO PRN ×4 (04:25→22:21)
[2017-07-21 04:48] LABS: INTERNATIONAL NORMALIZED RATIO 1.3 RATIO; PROTHROMBIN TIME - PATIENT 13.4 SEC (9.8-11.6)
[2017-07-21] MEDS ORDERED: PHARMACY ORDERED LAB-VANCO TROUGH ONE (05:45)
[2017-07-21] MEDS ORDERED: diphenhydrAMINE HCL 50 MG/ML VIAL IV PRN (06:45)
[2017-07-21] MEDS: LACTATED RINGER'S 1000 ML INJ 1,000 ML IV SCH ×2 (07:15→19:45)
[2017-07-21 08:00] VITALS: BP 132/78; PULSE 95; RESP 17; TEMP 98.2; O2SAT 94
[2017-07-21] MEDS: diphenhydrAMINE HCL 25 MG CAP PO PRN ×2 (09:34→18:00)
[2017-07-21] MEDS: VANCOMYCIN INJ 1,750 MG in SODIUM CHLORID 0.9% 500 ML INJ 500 ML IV SCH ×2 (10:26→17:55)
--- NOTE | 2017-07-21 11:51 | PD.ORT.PN ---
Subjective Subjective Remarks pt doing well, decreased pain with his right knee seen in hospital with Objective Vitals Vital Signs Date Time Temp Pulse Resp B/P (MAP) Pulse Ox O2 Delivery O2 Flow Rate FiO2 07/21/17 08:00 98.2 95 17 132/78 (96) 94 07/20/17 23:20 98.3 97 18 142/67 (92) 97 07/20/17 20:00 99.0 103 18 135/75 (95) 96 07/20/17 16:00 99.0 103 17 141/77 (98) 96 07/20/17 15:33 18 07/20/17 11:57 98.1 84 17 140/73 (95) 96 I/O 07/20/17 07/20/17 07/20/17 07/21/17 07/21/17 07/21/17 07:00 15:00 23:00 07:00 15:00 23:00 Intake Total 569 ml 650 ml 480 ml Output Total 400 ml 1200 ml Balance 169 ml 650 ml -720 ml Intake Oral 240 ml 650 ml 480 ml IV Total 329 ml Output Urine Total 400 ml 1200 ml # Voids 3 # Bowel Movements 0 0 0 Result Diagram: 07/20/17 0533 07/20/17 0533 Other Results Laboratory Tests Test 07/21/17 04:25 Prothromb Time International Ratio 1.3 RATIO Prothrombin Time 13.4 SEC (9.8-11.6) Imaging Last 24 hours Impressions Knee X-Ray 07/18/17 1533 Signed Impressions: Service Date/Time: Tuesday, July 18, 2017 16:01 - CONCLUSION: Post surgical changes and placement of numerous small radiopaque beads. Ad Barrera MD Objective Remarks seen and examined by Dr. Mike Dewey right knee dressing dry and intact, ice in place N/V intact No calf tenderness;neg quintin's Assessment & Plan Assessment and Plan POD # 3 s/p removal R knee prosthesis and insertion of abx spacer Ortho stable Coumadin,TEDS for DVT/PE prophylaxsis Antibiotics per I.D. ; follow cultures, no growth so far @ 72 hrs PT/Rehab; R LE 50% WB Poss PICC line in future per ID anticipate d/c home with [facility] tomorrow will discuss with Maria Victoria Winn Jul 21, 2017 11:51
[2017-07-21 12:04] VITALS: BP 145/81; PULSE 94; RESP 19; TEMP 98.8; O2SAT 98
--- NOTE | 2017-07-21 12:37 | HHI.FF ---
cc: Brenda Caraballo MD Infusion Therapy Location of Infusion Therapy: Home Health Care IV Infusion Order Patient Information Patient Weight 90.9 kg Diagnosis: Diagnosis Infection RTKA Coded Allergies: No Known Allergies (Verified Allergy, Unknown, 07/18/17) Administer Medication Vancomycin Vanco 1.75 gm IV q12H Stop Treatment: August 31, 2017 Additional Information Venous access: PICC Line Additional Instructions [x] Peripheral flush and dressing changes per protocol [x] Implanted port and central laborer pipeline: * Implanted port: 10 ml Normal Saline followed by 5 ml Heparin 100 units/ml Heparin flush after each use and monthly to maintain. [] May leave port accessed during therapy. [] May leave peripheral site accessed for duration of therapy. [x] If patient has SOB or respiratory distress, check oxygen saturation. If less than 90% or clinical signs of respiratory distress, administer oxygen at 2 L/min. via nasal cannula and notify physician. [x] Anaphylaxis/Reaction orders: * Stop infusion. * Keep IV line open with saline flush. * Notify physician. * Monitor vital signs every 15 minutes until symptoms resolve. * Check Oxygen saturation; Oxygen at 2 L/min. via nasal cannula if less than 90% or clinical signs of respiratory distress. * Administer diphenhydramine (Benadryl) 25 mg IV STAT, (unless patient has received as pre-med). May repeat once, if necessary. * Solu-Cortef 250 mg IVP over 30-60 seconds, use 100 mg vials for each dissolution. * Epinephrine (1mg/1 ml) 0.3 mg subcutaneously or IVP now with any signs of respiratory distress. * Check with physician for new additional pre-med orders if patient is re- challenged or re-treated. [x] May remove PICC line when treatment complete, after confirming with Physician. [x] If the patient is admitted to the hospital, the ED, or transferred via [facility] , complete transfer form including medication reconciliation order sheet. Laboratory Tests Weekly Labs: CBC w/diff, Creatinine, CRP, LFT's (Hepatic function test), SED Rate (Labs every Tuesday - copy to me, Dr Mike Dewey and Dr brenda Caraballo) Additional Information Please give Dr Caraballo office number and make appointment in 2 weeks for follow-up Please have pharmacy follow Vanco dosing, aim for Vanco trough 15-20 Dimayuga,Kia G MD Jul 21, 2017 12:37
[2017-07-21] MEDS ORDERED: VANC1000P IV (12:38)
[2017-07-21] MEDS ORDERED: CIPR250T52 PO ×2 (12:38→12:45)
--- NOTE | 2017-07-21 12:53 | HHI.IDPN ---
Subjective Subjective Remarks Patient is a 57-year-old male, admitted to the hospital for surgery on his right knee. He has had total knee arthroplasty in 2011, and apparently he's always had swelling in his right knee. Has not given him any problem. Last year he has had problem with stasis dermatitis in his right lower extremity and has been treated for cellulitis. He was going to the wound care center in [place], with no significant improvement, and switch to the [facility], and there was resolution of his problem. The patient since that time he started noticing a swollen area or lump on his right knee around February. He went to an orthopedic surgeon, and apparently had excision of the mass, or cyst around March. He also has had multiple aspirations of the cyst, with rapid reaccumulation of the fluid. The area would be painful, but he has not seen any redness. He denies any fever or chills or sweats. Has not had any respiratory, GI or any urinary complaints. He has not really had any trauma or fall resulting in injury to his right knee after he had his arthroplasty. He has been on several antibiotics including Keflex and Cipro. The last time he was on antibiotic was most likely more than 2 weeks ago. There was an outpatient wound culture from May that had MRSA, and pseudomonas aeruginosa. Last week he had complete drainage of the cyst, and cultures of that are negative so far. He had reaccumulation of the fluid, and the patient was brought into the hospital for further management. He underwent surgery and had removal of the prosthesis, as well as placement of an antibiotic spacer. He had some blood work preop, and he is WBC is normal, sedimentation rate is 19. He is afebrile currently. Infectious disease consultation has been requested to evaluate the patient and assist with antibiotic management. Notes reviewed Temps ok On pain meds No N/V Notes to have on face/head after dose of cefepime Itchy rash, better after Benadryl Path report C/W inflammation C/S negative Negative AFB and fungal stain ESR 37 CRP 17 WBC normal Antibiotics Vancomycin Cefepime Current Medications Medications (Trade) Dose Ordered Sig/Pat Route Start Time Stop Time Status Last Admin Lactated Ringer's 1,000 ml @ 80 mls/hr [id number] IV 07/18/17 16:45 07/19/17 21:50 (Morphine Inj) 5 mg Q3H PRN IV PUSH 07/18/17 16:45 07/20/17 02:45 ([place] 7.5-325 Mg) 1 tab Q4H PRN PO 07/18/17 16:45 ([place] 7.5-325 Mg) 2 tab Q4H PRN PO 07/18/17 16:45 07/21/17 04:25 (Zofran Inj) 4 mg Q6H PRN IVP 07/18/17 16:45 (Mag-Al Plus Susp Liq) 30 ml Q6H PRN PO 07/18/17 16:45 (Ambien) 5 mg HS PRN PO 07/18/17 21:00 (Toradol) 10 mg Q6H PRN PO 07/19/17 13:15 07/24/17 13:14 07/20/17 02:45 Pharmacy Profile Note 0 ml @ 0 mls/hr UNSCH OTHER 07/19/17 13:00 (Coumadin) SEE PROTOCOL TABLE ... DAILY@1600 PO 07/20/17 16:00 07/20/17 16:34 (Benadryl Inj) 25 mg Q6H PRN IV 07/21/17 06:45 07/21/17 06:48 (Benadryl) 25 mg UNSCH PRN PO 07/21/17 09:00 07/21/17 09:34 Vancomycin HCl 2000 mg/Sodium Chloride 520 ml @ 250 mls/hr Q12H IV 07/21/17 18:00 Miscellaneous Information SPECIFIC LAB TO BE DRAWN:VANCOMYCIN TROUGH DATE TO... ONCE ONCE .XX 07/23/17 05:45 07/23/17 05:46 Lines PIV Past Medical History PE DVT Past Surgical History Laser procedure on the right leg Bilateral carpal tunnel release Right total knee arthroplasty Right knee meniscectomy Bilateral shoulder rotator cuff repairs Allergies: Coded Allergies: No Known Allergies (Verified Allergy, Unknown, 07/18/17) Objective . Vital Signs Date Time Temp Pulse Resp B/P (MAP) Pulse Ox O2 Delivery O2 Flow Rate FiO2 07/21/17 12:04 98.8 94 19 145/81 (102) 98 07/21/17 08:00 98.2 95 17 132/78 (96) 94 07/20/17 23:20 98.3 97 18 142/67 (92) 97 07/20/17 20:00 99.0 103 18 135/75 (95) 96 07/20/17 16:00 99.0 103 17 141/77 (98) 96 07/20/17 15:33 18 . Laboratory Tests Test 07/19/17 13:41 07/20/17 05:33 Hemoglobin 13.3 GM/DL 13.5 GM/DL Hematocrit 38.9 % 39.9 % White Blood Count 9.1 TH/MM3 Red Blood Count 4.59 MIL/MM3 Mean Corpuscular Volume 86.8 FL Mean Corpuscular Hemoglobin 29.3 PG Mean Corpuscular Hemoglobin Concent 33.8 % Red Cell Distribution Width 14.0 % Platelet Count 212 TH/MM3 Mean Platelet Volume 7.7 FL Neutrophils (%) (Auto) 70.6 % Lymphocytes (%) (Auto) 15.3 % Monocytes (%) (Auto) 10.0 % Eosinophils (%) (Auto) 3.6 % Basophils (%) (Auto) 0.5 % Neutrophils # (Auto) 6.4 TH/MM3 Lymphocytes # (Auto) 1.4 TH/MM3 Monocytes # (Auto) 0.9 TH/MM3 Eosinophils # (Auto) 0.3 TH/MM3 Basophils # (Auto) 0.0 TH/MM3 CBC Comment DIFF FINAL Differential Comment Erythrocyte Sedimentation Rate 37 mm/hr Laboratory Tests Test 07/19/17 13:41 07/20/17 05:33 Creatinine 0.84 MG/DL 0.75 MG/DL Estimat Glomerular Filtration Rate 94 ML/MIN 107 ML/MIN Blood Urea Nitrogen 10 MG/DL Random Glucose 89 MG/DL Total Protein 6.3 GM/DL Albumin 2.7 GM/DL Calcium Level 8.8 MG/DL Alkaline Phosphatase 77 U/L Aspartate Amino Transf (AST/SGOT) 10 U/L Alanine Aminotransferase (ALT/SGPT) 12 U/L Total Bilirubin 0.6 MG/DL Sodium Level 137 MEQ/L Potassium Level 4.4 MEQ/L Chloride Level 103 MEQ/L Carbon Dioxide Level 26.1 MEQ/L Anion Gap 8 MEQ/L C-Reactive Protein 17.00 MG/DL Imaging Last Impressions Knee X-Ray 07/18/17 1004 Signed Impressions: Service Date/Time: Tuesday, July 18, 2017 16:01 - CONCLUSION: Post surgical changes and placement of numerous small radiopaque beads. Ad Barrera MD Physical Exam GENERAL: awake and alert, NAD SKIN: cool and dry. Hives on forehead and R cheek, slight swollen R upper lid HEAD: Atraumatic. Normocephalic. No temporal wasting, or tenderness. EYES: [place] conjunctiva. No petechia or hemorrhage. Pupils equal, round and reactive to light. Extraocular movements full and intact. No scleral icterus. No injection or drainage. EARS, NOSE AND THROAT: Nose without bleeding or purulent nasal discharge. No sinus tenderness. Mucous membranes pink and moist. No oral lesions noted. No exudate. No oral thrush. NECK: Trachea midline. Supple and not tender, no meningeal signs CARDIOVASCULAR: Regular rate and rhythm. No murmurs, rubs or gallops heard RESPIRATORY: Clear to auscultation. Breath sounds equal bilaterally. No rales , wheezing or rhonchi ABDOMEN: Soft, non-tender, nondistended. Bowel sounds present and normoactive. No guarding. No rebound. No organomegaly. EXTREMITIES: No clubbing, cyanosis. RLE larger than LLE. No open wounds; has brownish pigmentation in R leg. Knee incision is dry, swollen knee. LLE : no edema or cyanosis, or calf tenderness. Some small varicosities in L foot, and brownish pigmentation in his L leg. NEUROLOGICAL: Non-focal PSYCHIATRIC: Normal affect, calm and cooperative. 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, ?loosening - C/S negative - multiple aspirations with negative culture ?Failed RTKA S/P RTKA 2011 RECOMMENDATION Continue IV vanco Stop cefepime Use Cipro for GNR; has some atypical AFB covergae D/W Dr Estefany Dewey - will treat as infected RTKA, follow C/S, follow ESR and CRP , refer to Dr Caraballo and adjust Rx once the rest of C/S comes back Baseline EKG ok Patient instructed on side effects of Cipr regarding tendinitis I filled out form for Abx infusion 6 weeks planned for Abx, may cut shorter if other C/S finalized PICC today Explained plan to patient and D/W Dr Dewey D/W RN Spent about 45 minutes coordinating his plan of Rx, discussion with Dr Dewey and patient and , and ordering all necessary treatment plans Dimayuga,Kia G MD Jul 21, 2017 12:53
[2017-07-21 15:39] VITALS: BP 125/74; PULSE 87; RESP 17; TEMP 97.9; O2SAT 98
[2017-07-21] MEDS: diphenhydrAMINE HCL 50 MG/ML VIAL IV SCH ×2 (16:13→22:16)
[2017-07-21] MEDS: WARFARIN SOD 5 MG TAB PO SCH (16:19)
[2017-07-21] MEDS: CIPROFLOXACIN 750 MG TAB PO SCH ×2 (17:54→22:16)
[2017-07-21] MEDS: VANCOMYCIN INJ 2,000 MG in SODIUM CHLORID 0.9% 500 ML INJ 500 ML IV SCH (18:37)
[2017-07-21] MEDS ORDERED: BISACODYL 10 MG SUPP RECTAL PRN (19:00)
[2017-07-21] MEDS ORDERED: LACTULOSE SYRUP 20 GM/30 ML CUP PO PRN (19:00)
[2017-07-21] MEDS ORDERED: MAGNESIUM HYDROXIDE SUSP 30 ML CUP PO PRN (19:00)
[2017-07-21 19:10] VITALS: BP 123/73; PULSE 98; RESP 20; TEMP 98.5; O2SAT 96
[2017-07-22 00:15] VITALS: BP 125/66; PULSE 106; RESP 17; TEMP 98.3; O2SAT 93
[2017-07-22] MEDS: diphenhydrAMINE HCL 50 MG/ML VIAL IV SCH ×2 (03:34→08:58)
[2017-07-22] MEDS: ACETAMINOPHEN/HYDROcodone 325 MG/7.5 MG TAB PO PRN ×3 (03:34→12:54)
[2017-07-22 03:50] VITALS: BP 124/74; PULSE 93; RESP 17; TEMP 98.4; O2SAT 93
[2017-07-22] MEDS: VANCOMYCIN INJ 1,750 MG in SODIUM CHLORID 0.9% 500 ML INJ 500 ML IV SCH (05:56)
[2017-07-22] MEDS: VANCOMYCIN INJ 2,000 MG in SODIUM CHLORID 0.9% 500 ML INJ 500 ML IV SCH (06:00)
[2017-07-22 06:14] LABS: INTERNATIONAL NORMALIZED RATIO 1.3 RATIO; PROTHROMBIN TIME - PATIENT 13.4 SEC (9.8-11.6)
[2017-07-22 06:30] LABS: CREATININE 0.79 MG/DL (0.60-1.30)
[2017-07-22] MEDS ORDERED: HYDR-3288 PO (06:53)
[2017-07-22] MEDS ORDERED: COUM5TAB PO (06:58)
--- NOTE | 2017-07-22 07:06 | PD.ORT.PN ---
Subjective Subjective Remarks pt doing well, decreased pain with his right knee had long discussion with Bess Burt yesterday about patient's clinical presentation and future care PICC line was placed yesterday Objective Vitals Vital Signs Date Time Temp Pulse Resp B/P (MAP) Pulse Ox O2 Delivery O2 Flow Rate FiO2 07/22/17 03:50 98.4 93 17 124/74 (91) 93 07/22/17 00:15 98.3 106 17 125/66 (85) 93 07/21/17 19:10 98.5 98 20 123/73 (90) 96 07/21/17 15:39 97.9 87 17 125/74 (91) 98 07/21/17 12:04 98.8 94 19 145/81 (102) 98 07/21/17 08:00 98.2 95 17 132/78 (96) 94 I/O 07/21/17 07/21/17 07/21/17 07/22/17 07/22/17 07/22/17 07:00 15:00 23:00 07:00 15:00 23:00 Intake Total 480 ml 1417.5 ml 960 ml Output Total 1200 ml 800 ml 750 ml Balance -720 ml 617.5 ml 210 ml Intake Oral 480 ml 900 ml 960 ml IV Total 517.5 ml Output Urine Total 1200 ml 800 ml 750 ml # Bowel Movements 0 0 Result Diagram: 07/20/17 0533 07/22/17 0535 Other Results Laboratory Tests Test 07/22/17 05:35 Prothromb Time International Ratio 1.3 RATIO Prothrombin Time 13.4 SEC (9.8-11.6) Imaging Last 24 hours Impressions Knee X-Ray 07/18/17 1533 Signed Impressions: Service Date/Time: Tuesday, July 18, 2017 16:01 - CONCLUSION: Post surgical changes and placement of numerous small radiopaque beads. Ad Barrera MD Objective Remarks seen and examined by Dr. Mike Dewey PICC line in place right knee dressing dry and intact, ice in place N/V intact No calf tenderness;neg quintin's Assessment & Plan Assessment and Plan POD # 4 s/p removal R knee prosthesis and insertion of abx spacer Ortho stable Coumadin,TEDS for DVT/PE prophylaxsis- rx for 5 mg in chart Antibiotics per I.D. ; follow cultures, no growth so far @ 72 hrs PT/Rehab; R LE 50% WB discharge home today with [facility] Maria Victoria Purcell Jul 22, 2017 07:06
[2017-07-22] MEDS: LACTATED RINGER'S 1000 ML INJ 1,000 ML IV SCH (08:15)
[2017-07-22] MEDS: CIPROFLOXACIN 750 MG TAB PO SCH (08:58)
[2017-07-23] MEDS ORDERED: PHARMACY ORDERED LAB ONE (05:45)
== END 2017-07-22 13:18 | disposition home health service (06) | DRG 465 ==
LOC: HSDI 09:52 → N06B 22:17
PROVIDERS: ADMIT Orthopaedic Surgery Orthopaedic Surgery of the Spine; ATTEND Orthopaedic Surgery Orthopaedic Surgery of the Spine
PROC: 0SBC0ZZ Excision of Right Knee Joint, Open Approach (ICD-10-PCS; 2017-07-18)
PROC: 0SHC08Z Insertion of Spacer into Right Knee Joint, Open Approach (ICD-10-PCS; 2017-07-18)
PROC: 3E0T3BZ Introduction of Anesthetic Agent into Peripheral Nerves and Plexi, Percutaneous Approach (ICD-10-PCS; 2017-07-18)
PROC: 0SPC0JZ Removal of Synthetic Substitute from Right Knee Joint, Open Approach (ICD-10-PCS; principal; 2017-07-18 12:38)
PROC: 05H933Z Insertion of Infusion Device into Right Brachial Vein, Percutaneous Approach (ICD-10-PCS; 2017-07-21)
DX: T84.53XA Infection and inflammatory reaction due to internal right knee prosthesis, initial encounter (principal); T84.032A Mechanical loosening of internal right knee prosthetic joint, initial encounter; M65.9 Synovitis and tenosynovitis, unspecified; L27.1 Localized skin eruption due to drugs and medicaments taken internally; T36.1X5A Adverse effect of cephalosporins and other beta-lactam antibiotics, initial encounter; L29.9 Pruritus, unspecified; Y83.1 Surgical operation with implant of artificial internal device as the cause of abnormal reaction of the patient, or of later complication, without mention of misadventure at the time of the procedure; Z86.718 Personal history of other venous thrombosis and embolism; Z86.711 Personal history of pulmonary embolism
CPT/HCPCS: 36569; 73560; 76937; 80053; 80202; 82565; 85014; 85018; 85025; 85610; 85652; 86140; 86850; 86900; 86901; 86920; 87015; 87070; 87102; 87116; 87205; 87206; 88304; 88305; 88311; 93005; 94150; C1713; C1776; C9290; J0690; J0692; J0735; J1200; J1580; J1885; J2175; J2250; J2270; J2370; J2405; J2795; J3010; J3370; J7040; J7120; L1830

== ENCOUNTER 2017-09-30 11:22 | Emergency (ER) | payer BC ==
[~2017-09-30] VITALS: Ht 177.8 cm; Wt 93.0 kg
[~2017-09-30 11:22] MED LIST changes: +CIPR250T52 PO; +COUM5TAB PO; -FISHCAP4 PO; +HYDR-3288 PO; -TRAM50 PO; +VANC1000P IV; +WALKER WHEELS/F1 MIS; -XARE20TA PO
[2017-09-30 11:31] VITALS: BP 140/72; PULSE 83; RESP 18; TEMP 98.3; O2SAT 97
[2017-09-30] MEDS ORDERED: SODIUM CHLORIDE 0.9% FLUSH 10 ML FLUSH IV FLUSH PRN (11:45)
--- NOTE | 2017-09-30 11:54 | PD ---
HPI Chief Complaint: Abnormal Results Time Seen by Provider: 11:39 Travel History International Travel<30 days: No Contact w/Intl Traveler<30days: No Traveled to known affect area: No History of Present Illness HPI Patient comes emergency department complaining of right lower extremity edema having an outpatient ultrasound that showed a DVT in his right lower extremity was performed today. Patient states that he has a history of PE and DVTs and was on Coumadin for several years then switched to Xarelto, more recently switched back to Coumadin, but has been off of it for over 2 weeks. Patient reports he supposed to have knee surgery next Tuesday, which is why he was taken off of his Coumadin. Patient reports feeling describes it was like a pulled muscle in his groin is worse palpation. Denies any radiation of the pain. Patient reports uncomfortable as throughout his right lower extremity secondary to swelling. Patient reports swelling began yesterday. Denies anything making it better or worse. Denies any fevers, chest pain, or shortness of breath. PFSH Past Medical History Narrative Medical PE Cancer: No Cardiovascular Problems: No Diabetes: No Deep Vein Thrombosis: Yes Endocrine: No Genitourinary: No Hepatitis: No Hiatal Hernia: No Immune Disorder: No Musculoskeletal: Yes (R meniscus tear) Neurologic: No Psychiatric: No Reproductive: No Respiratory: No Thyroid Disease: No ?: Not Past Surgical History Abdominal Surgery: No AICD: No Body Medical Devices: prosthesis to knee Cardiac Surgery: No Ear Surgery: No Endocrine Surgery: No Eye Surgery: No Genitourinary Surgery: No Gynecologic Surgery: No Joint Replacement: No Oral Surgery: Yes (tonsillectomy) Pacemaker: No Thoracic Surgery: No Social History Tobacco Use: No Substance Use: No Allergies-Medications (Allergen,Severity, Reaction): Coded Allergies: No Known Allergies (Verified Allergy, Unknown, 07/18/17) Reported Meds & Prescriptions Reported Meds & Active Scripts Active Xarelto (Rivaroxaban) 20 Mg Tab 20 Mg PO DAILY 30 Days Start after finishing 15mg twice daily. Xarelto (Rivaroxaban) 15 Mg Tab 15 Mg PO Q12HR Coumadin (Warfarin) 5 Mg Tab 5 Mg PO DAILY PRN [place] (Hydrocodone-Acetaminophen) 7.5-325 mg Tab 1-2 Tab PO Q6H PRN Cipro (Ciprofloxacin HCl) 250 Mg Tab 750 Mg PO BID 42 Days Vancomycin Inj (Vancomycin HCl) 1 Gram Inj 1,750 Mg IV Q12HR 42 Days Walker with Front Wheels (Device) 1 Mis Mis Ea .XX DIRECTED Review of Systems Except as stated in HPI: all other systems reviewed are Neg Physical Exam Narrative GENERAL: Well-developed, overly nourished, in no acute distress, and non-ill appearing. SKIN: Focused skin assessment warm and dry. HEAD: Atraumatic. Normocephalic. EYES: Pupils equal and round. EOMI. No scleral icterus. No injection or drainage. ENT: No nasal bleeding or discharge. Mucous membranes pink and moist. NECK: Trachea midline. Supple. No nuclear rigidity. CARDIOVASCULAR: Regular rate and rhythm. No murmur appreciated. Dorsal pulses 2+, intact, and equal bilaterally. Capillary refill equal bilaterally. RESPIRATORY: No accessory muscle use. No respiratory distress. Clear to auscultation. Breath sounds equal bilaterally. MUSCULOSKELETAL: No obvious deformities. No clubbing. No cyanosis. 1+ pitting edema right lower extremity. Decreased range of motion right lower extremity secondary to pain. NEUROLOGICAL: Awake and alert. No obvious cranial nerve deficits. Motor grossly within normal limits. Normal speech. PSYCHIATRIC: Appropriate mood and affect; insight and judgment normal. Data Data Last Documented VS Vital Signs Date Time Temp Pulse Resp B/P (MAP) Pulse Ox O2 Delivery O2 Flow Rate FiO2 09/30/17 11:57 Room Air 09/30/17 11:31 98.3 83 18 140/72 (94) 97 Orders Orders Basic Metabolic Panel (Bmp) (09/30/17 11:41) Complete Blood Count With Diff (09/30/17 11:41) Prothrombin Time / Inr (Pt) (09/30/17 11:41) Act Partial Throm Time (Ptt) (09/30/17 11:41) Iv Access Insert/Monitor (09/30/17 11:41) Ecg Monitoring (09/30/17 11:41) Oximetry (09/30/17 11:41) Sodium Chloride 0.9% Flush (Ns Flush) (09/30/17 11:45) Rivaroxaban (Xarelto) (09/30/17 12:45) Ed Discharge Order (09/30/17 13:07) Labs Laboratory Tests Test 09/30/17 11:55 White Blood Count 9.9 TH/MM3 Red Blood Count 5.31 MIL/MM3 Hemoglobin 15.3 GM/DL Hematocrit 45.0 % Mean Corpuscular Volume 84.7 FL Mean Corpuscular Hemoglobin 28.8 PG Mean Corpuscular Hemoglobin Concent 34.0 % Red Cell Distribution Width 14.4 % Platelet Count 205 TH/MM3 Mean Platelet Volume 8.2 FL Neutrophils (%) (Auto) 73.3 % Lymphocytes (%) (Auto) 16.9 % Monocytes (%) (Auto) 7.1 % Eosinophils (%) (Auto) 2.2 % Basophils (%) (Auto) 0.5 % Neutrophils # (Auto) 7.2 TH/MM3 Lymphocytes # (Auto) 1.7 TH/MM3 Monocytes # (Auto) 0.7 TH/MM3 Eosinophils # (Auto) 0.2 TH/MM3 Basophils # (Auto) 0.0 TH/MM3 CBC Comment DIFF FINAL Differential Comment Prothrombin Time 10.7 SEC Prothromb Time International Ratio 1.1 RATIO Activated Partial Thromboplast Time 25.6 SEC Blood Urea Nitrogen 17 MG/DL Creatinine 0.93 MG/DL Random Glucose 91 MG/DL Calcium Level 9.2 MG/DL Sodium Level 136 MEQ/L Potassium Level 4.5 MEQ/L Chloride Level 101 MEQ/L Carbon Dioxide Level 26.6 MEQ/L Anion Gap 8 MEQ/L Estimat Glomerular Filtration Rate 84 ML/MIN MDM Medical Decision Making Medical Screen Exam Complete: Yes Emergency Medical Condition: Yes Differential Diagnosis DVT, metabolic disturbance, anemia Narrative Course Ultrasound right lower extremity performed at [place] today was reviewed shows extensive DVT from the mid thigh to below the knee read by the radiologist. Patient in no obvious distress upon re-evaluation. All pertinent laboratory/ Radiology result(s) discussed with patient/family. Discussed patient with Dr. Love, who saw and evaluated the patient and is in agreement plan of care and disposition.. Any questions/concerns in reference to patient diagnosis/ condition discussed and clarified prior to patient's discharge. Reinforced sheer importance of close follow up with patient's primary physician or primary care clinic. Instructed patient to return to ED immediately, if symptoms return/ worsen. Patient showed understanding of above instructions. Further instructions and recommendations were detailed in discharge paperwork. Patient ambulated without difficulty out of ED at discharge with his walker. Physician Communication Physician Communication [phone] Dewey'shireen Irene who states that they will have to postpone the patient's surgery and that the DVT just needs to be treated. Diagnosis Primary Impression: DVT (deep venous thrombosis) Qualified Codes: I82.401 - Acute embolism and thrombosis of unspecified deep veins of right lower extremity Patient Instructions: Deep Venous Thrombosis (ED), General Instructions Additional Instructions: Follow-up with your primary care physician and Dr. Dewey next week. Take all medication as prescribed. You given your first dose of Xarelto here. Take your second dose of 15 mg Xarelto tonight. Then start taking the Xarelto 15 mg twice a day until gone. Once of 15 mg Xarelto is gone and start taking the 20 mg Xarelto daily. Follow-up with your primary care doctor for additional refills. Return to the emergency department if symptoms get worse. Med/Other Pt SpecificInfo: Prescription(s) given Scripts Rivaroxaban (Xarelto) 20 Mg Tab 20 MG PO DAILY for Blood Clot Prevention for 30 Days, #30 TAB 0 Refills Start after finishing 15mg twice daily. Prov: Colin Love MD 09/30/17 Rivaroxaban (Xarelto) 15 Mg Tab 15 MG PO Q12HR for Blood Clot Prevention, #41 TAB 0 Refills Prov: Colin Love MD 09/30/17 Disposition: 01 DISCHARGE HOME Condition: Stable Adalid Morris Sep 30, 2017 11:54
[2017-09-30 12:11] LABS: AUTOMATED NEUTROPHIL # 7.2 TH/MM3 (1.8-7.7); BASOPHIL % 0.5 % (0.0-2.0); EOSINOPHIL # 0.2 TH/MM3 (0-0.4); EOSINOPHIL % 2.2 % (0.0-4.0); HEMOGLOBIN 15.3 GM/DL (13.0-17.0); LYMPH % 16.9 % (9.0-44.0); LYMPHOCYTE # 1.7 TH/MM3 (1.0-4.8); MEAN CELL VOLUME 84.7 FL (80.0-100.0); MEAN CORPUSCULAR HEMOGLOBIN 28.8 PG (27.0-34.0); MEAN PLATELET VOLUME 8.2 FL (7.0-11.0); MONO % 7.1 % (0.0-8.0); MONOCYTE # 0.7 TH/MM3 (0-0.9); NEUT % 73.3 % (16.0-70.0); PLATELET COUNT 205 TH/MM3 (150-450); RED BLOOD COUNT 5.31 MIL/MM3 (4.50-5.90); RED CELL DISTRIBUTION WIDTH 14.4 % (11.6-17.2); WHITE BLOOD COUNT 9.9 TH/MM3 (4.0-11.0)
[2017-09-30 12:22] LABS: INTERNATIONAL NORMALIZED RATIO 1.1 RATIO; PROTHROMBIN TIME - PATIENT 10.7 SEC (9.8-11.6)
[2017-09-30 12:39] LABS: BICARBONATE 26.6 MEQ/L (21.0-32.0); CALCIUM 9.2 MG/DL (8.5-10.1); CREATININE 0.93 MG/DL (0.60-1.30)
[2017-09-30] MEDS ORDERED: RIVAROXABAN 15 MG TAB PO ONE (12:45)
[2017-09-30] MEDS ORDERED: XARE20TA PO (12:49)
[2017-09-30] MEDS ORDERED: XARE15TA PO (12:49)
== END 2017-09-30 13:19 | disposition home or self-care (01) ==
LOC: NEPC 11:22
DX: I82.401 Acute embolism and thrombosis of unspecified deep veins of right lower extremity (principal); Z79.01 Long term (current) use of anticoagulants
CPT/HCPCS: 80048; 85025; 85610; 85730; 99283

== ENCOUNTER 2017-11-10 10:04 | Inpatient (IN) ==
[2017-11-10] MEDS ORDERED: Chlorhexidine 4% Topical 120 APPLIC/120 ML Bottle TOPICAL SCH (10:45)
[2017-11-10] MEDS ORDERED: Chlorhexidine Gluconate 2% 1 Pack (2 Cloths) TOPICAL SCH (10:45)
[2017-11-10] MEDS ORDERED: Metoprolol Tartrate 25 MG Tablet PO SCH (10:45)
[2017-11-10] MEDS ORDERED: Sodium Chlor 0.9% Inj 500 ML IV.SIG SCH (11:00)
[2017-11-10] MEDS ORDERED: Vancomycin Inj 1 GM/200 ML PIGGYBACK IV.SIG SCH (11:00)
[2017-11-10] MEDS ORDERED: Sodium Chlor 0.9% Inj 73.07 ML, Ropivacaine 0.5% PF Inj 24.63 ML, Ketorolac Inj 30 MG, ... P-ARTICULR SCH ×5 (11:00)
[2017-11-10 12:12] LABS: Baso % (Auto) 0.6 % (0.0-2.0); Eos # (Auto) 0.2 th/mm3 (0.0-0.4); Hematocrit 44.8 % (39.0-51.0); Hemoglobin 14.9 gm/dL (13.0-17.0); Lymph # (Auto) 1.6 th/mm3 (1.0-4.8); Lymph % (Auto) 26.1 % (9.0-44.0); Mean Corpuscular HGB Conc 33.3 % (32.0-36.0); Mean Corpuscular Hemoglobin 28.8 pg (27.0-34.0); Mean Corpuscular Volume 86.5 fL (80.0-100.0); Mono # (Auto) 0.4 th/mm3 (0.0-0.9); Mono % (Auto) 6.7 % (0.0-8.0); Neut # (Auto) 3.8 th/mm3 (1.8-7.7); Neut % (Auto) 63.6 % (16.0-70.0); Platelet Count 220 th/mm3 (150-450); Red Blood Count 5.18 mil/mm3 (4.50-5.90); Red Cell Distribution Width 15.9 % (11.6-17.2)
--- NOTE | 2017-11-10 13:20 | P.RAD ---
Post Procedure Progress Note - Pre Procedure Diagnosis (1) Pre-op exam - Post Procedure Diagnosis (1) Pre-op exam - Procedure Information Procedure Date: 11/10/17 Supervising Radiologist: Fito Young Jr, MD Estimated blood loss (mL): 0 Anesthesia: Local - Plan of Activity Patient to Unit: Other Patient Condition: Good See PACS Report for procedural detail/treatment. Vascular - Venous Procedure - Additional Information Findings: Pt for orthopedic surgery. Preop IVC filter placement requested. Placed retrievable IVC filter. In good position. Plan: This is a retrievable IVC filter and can be removed up to 1 year from its placement. This was discussed with the patient.
[2017-11-10] MEDS ORDERED: Bupivacaine Liposomal PF 1.3% Inj 20 ML Vial ONE (13:28)
[2017-11-10] MEDS ORDERED: Iohexol 350 MG/ML 50 ML Vial (for Rad Diag) IVCONTRAST ONE (13:52)
--- NOTE | 2017-11-10 14:10 | IR ---
EXAM DATE: 11/10/2017 1:51 PM EDT AGE/SEX: 57 years / Male INDICATIONS: Patient presents with history of deep vein thrombosis in need of temporary inferior sapphire a cava filter placement. Patient for orthopedic surgery of the hip. CLINICAL DATA: This is the patient's initial encounter. Patient reports that signs and symptoms have been present for > 1 year and indicates a pain score of 0/10. MEDICAL/SURGICAL HISTORY: Deep venous thrombosis. Hypercholesterolemia. PE. Osteoarthritis of the knee. Total knee replacement, right. Bilateral carpal tunnel. Bilateral rotator cuff. COMPARISON: No prior exams available for comparison. FLUORO TIME (min): 1.1 IMAGE SERIES: 3 ACCESS SITE: Right internal jugular vein CONTRAST (cc): 15 Omnipaque (iohexol) 350 DEVICE(S): Right Inferior vena cava, [place] IVC filter retrievable. . . PROCEDURE : 1. Ultrasound-guided venipuncture. 2. Inferior venacavogram. 3. Inferior vena cava filter placement. 4. Conscious sedation with continuous EKG and oximetry monitoring. The risks, benefits and alternatives to the procedure were explained and verbal and written consent w as obtained. The site was prepped in sterile fashion. Full sterile technique was used, including ca p, mask, sterile gloves and gown and a large sterile sheet. Hand hygiene and 2% chlorhexidine and/or betadine/alcohol prep was utilized per protocol for cutaneous antisepsis. Sterile gel and sterile p robe cover were utilized for ultrasound guidance. The skin and subcutaneous tissues were infiltrated with local anesthetic solution. With ultrasound and fluoroscopic guidance the targeted vein was punctured and a vascular sheath was p laced. Inferior venacavogram was performed to demonstrate level of renal veins. No caval thrombus was identified. The prescribed filter was deployed in the infrarenal inferior vena cava. Following deplo yment the filter was identified in good position. Conscious sedation was performed with the prescribed dosages and duration as above in the presence of an independent trained radiology nurse to assist in the monitoring of the patient. EKG and oximetry remained stable throughout the procedure. The patient tolerated the procedure well and there were n o complications. The patient was sent to post anesthesia recovery in stable condition. CONCLUSION: 1. Uncomplicated inferior vena cava filter placement as above. This is a retrievable IVC filter and can be removed up to one year following its placement. This was discussed with the patient prior to t he procedure. Electronically signed by: Fito Young MD 11/10/2017 2:08 PM EDT
[2017-11-10] MEDS ORDERED: Bupivacaine PF 0.5% Inj 30 ML Vial ONE (15:11)
[2017-11-10] MEDS: ceFAZolin 2 GM Premix Inj 2 GM/50 ML PIGGYBACK IV.SIG SCH (16:00)
[2017-11-10] MEDS ORDERED: Tobramycin Sulfate 1,200 MG Vial (for ortho/sterile core) OTHER ONE (17:01)
[2017-11-10] MEDS ORDERED: Glycopyrrolate Inj 1 MG/5 ML Syringe IV.PUSH ONE (17:30)
[2017-11-10] MEDS ORDERED: Lidocaine PF 1% Inj 5 ML Syringe INFILTRATN ONE (17:30)
[2017-11-10] MEDS ORDERED: Phenylephrine/NS 1000 MCG/10ML Syringe IV.PUSH ONE (17:30)
[2017-11-10] MEDS ORDERED: Neostigmine Inj 5 MG/5 ML Syringe IV.PUSH ONE (17:30)
[2017-11-10] MEDS ORDERED: Post-op Orders (for Pharmacy) OTHER STA (18:48)
[2017-11-10] MEDS ORDERED: Zolpidem Tartrate 5 MG Tablet PO PRN (18:48)
[2017-11-10] MEDS ORDERED: Bisacodyl 10 MG Supp RECTAL PRN (18:48)
[2017-11-10] MEDS ORDERED: fentaNYL Citrate Inj 100 MCG/2 ML Ampul ONE (19:08)
[2017-11-10] MEDS ORDERED: fentaNYL Citrate Inj 250 MCG/5 ML Ampul ONE (19:14)
--- NOTE | 2017-11-10 19:28 | P.OP ---
- Preoperative Diagnosis (1) Failed total knee, right Comment: Status post removal of total knee prosthesis with extensive debridement. Status post placement of antibiotic cement delivery system - Postoperative Diagnosis (1) Failed total knee, right Comment: Status post removal of total knee prosthesis with extensive debridement. Status post placement of antibiotic cement delivery system Date of procedure: 11/10/17 Procedure: Removal of antibiotic impregnated cement delivery system. 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 The patient has had multiple debridements. An organism never grew but he had extensive treatment with IV antibiotics. His serologic markers returned to normal. He had serologic testing for allergy to bone cement and common orthopedic metals without showing evidence of reactivity. He now presents for revision total knee replacement. NOTE: Mike Dewey was present for the entire surgical procedure as my campaign assistant. In my medical opinion that individual's skill and care was necessary for proper management of this patient. TOURNIQUET TIME: 116 minutes COMPANY: [employer] FEMUR: Size 5, posterior stabilized, 20 mm stem, 8 mm distal lateral, 4 mm posterior lateral, 8 mm posterior medial buildup TIBIA: Size 4, fixed-bearing, 16 millimeter x 75 mm stem PATELLA: 41 mm POLYETHYLENE INSERT: 17.5 mm PROCEDURE: This patient was brought the operating room and anesthetized in the supine position. The patient was positioned supine on the table. The tourniquet was placed about the thigh, and the leg was scrubbed with alcohol followed by Hibiclens followed by ChloraPrep and draped sterilely. A timeout was done, and antibiotics were given. After exsanguination the tourniquet was inflated to 250 mmHg. An anterior incision was made and a median parapatellar arthrotomy was performed. The patella was released laterally and subluxed allowing removal of the cement impregnated device in the residual patella and freehand cut of the patella which was then sized. A metal cap was placed over the exposed patellar surface for protection. The attention was directed to the tibia. Retractors were positioned. The previous antibiotic spacer was removed from the femur and tibia. The intramedullary guide was was utilized and the canal was reamed to 16 mm. The intramedullary guide was utilized in the tibia was cut to freshen the bone. All excessive debris was removed. A docking pilot hole was placed in the distal femur. This was reamed to 20 mm. We performed a distal cut removing just 1 or 2 mm from the medial side which had an adequate bony shelf. We removed 8 mm from the lateral side. This was incised for an anterior posterior and chamfer cut. We removed 8 mm in the posterior medial side and 4 mm from the posterior lateral side. The box cut was made. Trial reduction showed excellent balancing with a 17-1/2 mm insert and the system was balanced in flexion and extension. The bony surfaces were prepared. On the back table the components were assembled. Approximately 1 g of tobramycin and 1 g of vancomycin was mixed together. The components were then assembled and after extensive debridement the system was cemented using methylmethacrylate. A field block with local anesthesia was utilized. The tourniquet was let down. Hemostasis was controlled. The patient had range of motion of extension 0 and flexion 125. This was well balanced. The final plastic was inserted. And Autovac drain was brought through separate stab incision. The arthrotomy was repaired with #2 Tycron sutures, subcutaneous tissue with 2-0 Vicryl. The skin was approximated and sutured. A sterile dressing was applied. Sponge counts, needle counts and instrument counts were all correct. The patient tolerated procedure well and was taken to recovery in satisfactory condition. FINDINGS: There was extensive loss of bone stock posterior and medially. The cuts were excellent. Some of the defect was filled with polymethylmethacrylate. Otherwise bony cuts on the femur were excellent as well as with the tibia. The final solution appeared to be very satisfactory. There is no complication that was appreciated.
--- NOTE | 2017-11-10 20:37 | XR ---
EXAM DATE: 11/10/2017 8:34 PM EDT AGE/SEX: 57 years / Male INDICATIONS: Post op right knee. CLINICAL DATA: This is the patient's initial encounter. Patient reports that signs and symptoms have been present for 1 day and indicates a pain score of 0/10. MEDICAL/SURGICAL HISTORY: None. None. COMPAR[place] [facility] [place]1 OR 2 VWS[place] 07/18/2017. . FINDINGS: Revision arthroplasty with long tibial and femoral stem components. The alignment is near-anatomic. S urgical drains, soft tissue gas, and skin elan are expected postsurgical findings. Stable lucency in the medial femoral condyle. CONCLUSION: Near anatomic alignment of revision total knee arthroplasty. Electronically signed by: Fito José MD 11/10/2017 8:36 PM EDT
[2017-11-10] MEDS ORDERED: *morphine SULFATE 4 MG/ML PERIprocedure ONLY ONE (21:20)
[2017-11-11 04:25] LABS: Hematocrit 38.5 % (39.0-51.0)
--- NOTE | 2017-11-11 06:37 | P.PNOP ---
Subjective Interval history: POD#1 R Rev TKR No SOB Explained operative findings;answered multiple questions Physical Exam Vital signs: Vital Signs 11/10/17 11:27 11/10/17 13:45 11/10/17 15:15 Temperature 98.6 F 98.7 F Pulse Rate 67 66 72 Respiratory Rate 20 Blood Pressure 121/81 143/86 H Pulse Oximetry 98 99 100 11/10/17 20:07 11/10/17 20:15 11/10/17 20:30 Temperature 98.8 F Pulse Rate 113 H 104 H 88 Respiratory Rate 12 11 L Blood Pressure 127/83 134/91 H 130/70 Pulse Oximetry 95 96 97 11/10/17 20:45 11/10/17 21:00 11/10/17 21:15 Temperature Pulse Rate 91 H 90 87 Respiratory Rate 19 16 15 Blood Pressure 134/80 130/78 123/73 Pulse Oximetry 97 94 L 92 L 11/10/17 21:30 11/10/17 21:45 11/10/17 22:00 Temperature 98.6 F Pulse Rate 93 H 94 H 94 H Respiratory Rate 17 17 Blood Pressure 121/72 124/76 123/77 Pulse Oximetry 93 L 93 L 95 11/10/17 22:31 11/11/17 01:04 11/11/17 04:35 Temperature 97.1 F L 97.9 F 97.8 F Pulse Rate 94 H 101 H 99 H Respiratory Rate 18 18 18 Blood Pressure 137/80 127/66 112/60 Pulse Oximetry 98 96 97 Intake & Output 11/10/17 11/10/17 11/11/17 06:59 18:59 06:59 Intake Total 4050 / 4050 Output Total 350 / 350 600 / 600 Balance -350 / -350 3450 / 3450 Weight 93 kg Intake: IV 100 / 100 Ancef Inj 1,000 MG In NS Inj 100 / 100 100 ML @ 200 mls/hr IV.SIG Q6H LASHAE Rx#:[id number] Oral 50 / 50 Anesthesia Amount 3500 / 3500 SureTrans Amount 400 / 400 Output: Urine 350 / 350 0 / 0 Estimated Blood Loss 200 / 200 Wound Drainage 400 / 400 # 1 Right Knee 400 / 400 Other: # Voids 1 Weight On Admission 93 kg N/V intact Dressings dry Results - Labs CBC & Chem 7: 11/11/17 03:42 Laboratory Results - last 24 hr 11/10/17 11/10/17 11/11/17 11:45 11:45 03:42 WBC 6.0 RBC 5.18 Hgb 14.9 13.0 Hct 44.8 38.5 L MCV 86.5 MCH 28.8 MCHC 33.3 RDW 15.9 Plt Count 220 MPV 8.0 Neut % (Auto) 63.6 Lymph % (Auto) 26.1 [place] % (Auto) 6.7 Eos % (Auto) 3.0 Baso % (Auto) 0.6 Neut # (Auto) 3.8 Lymph # (Auto) 1.6 [place] # (Auto) 0.4 Eos # (Auto) 0.2 Baso # (Auto) 0.0 WBC Differential . Differential Comment Auto diff final Blood Type B Positive Antibody Screen Negative MTS Gel Crossmatch See Detail - Imaging Impressions IVC Filter Placement X-Ray 11/10/17 00:00 CONCLUSION: 1. Uncomplicated inferior vena cava filter placement as above. This is a retrievable IVC filter and can be removed up to one year following its placement. This was discussed with the patient prior to the procedure. Knee X-Ray 11/10/17 00:00 CONCLUSION: Near anatomic alignment of revision total knee arthroplasty. Assessment and Plan - Assessment and Plan Ortho stable Xarelto low dose for 5 days,then resume pre op dosage D/C home HHC RN/PT Jose/Nhi
[2017-11-11] MEDS ORDERED: Rivaroxaban 20 MG Tablet PO SCH (09:00)
[2017-11-11] MEDS: Rivaroxaban 10 MG Tablet PO SCH (12:43)
[2017-11-11] MEDS: Senna/Docusate Sodium 8.6/50 MG Tablet PO SCH ×2 (12:43→17:47)
[2017-11-11] MEDS: ceFAZolin 2 GM Premix Inj 2 GM/50 ML PIGGYBACK IV.SIG SCH (12:44)
[2017-11-11] MEDS: Morphine Inj 4 MG/ML Vial IV.PUSH PRN ×2 (18:36→22:31)
--- NOTE | 2017-11-12 07:01 | P.PNOP ---
Subjective Interval history: Continue to progress with physical therapy. No new complaints. Physical Exam Vital signs: Vital Signs 11/11/17 08:00 11/11/17 12:00 11/11/17 16:00 Temperature 97.9 F 97.8 F 98.1 F Pulse Rate 89 90 93 H Respiratory Rate 18 18 18 Blood Pressure 118/64 123/60 124/62 Pulse Oximetry 96 96 97 11/11/17 20:35 11/12/17 00:00 11/12/17 03:49 Temperature 98.9 F 98.8 F 98.5 F Pulse Rate 93 H 88 86 Respiratory Rate 18 18 18 Blood Pressure 118/62 118/60 112/62 Pulse Oximetry 97 94 L 95 Intake & Output 11/11/17 11/11/17 11/12/17 06:59 18:59 06:59 Intake Total 4510 / 4510 650 / 650 480 / 480 Output Total 1500 / 1500 530 / 530 3 / 3 Balance 3010 / 3010 120 / 120 477 / 477 Weight 93 kg 93 kg Intake: IV 200 / 200 Ancef Inj 1,000 MG In NS Inj 200 / 200 100 ML @ 200 mls/hr IV.SIG Q6H LASHAE Rx#:[id number] Oral 410 / 410 480 / 480 Anesthesia Amount 3500 / 3500 Autotransfusion Amount 300 / 300 SureTrans Amount 400 / 400 350 / 350 Output: Urine 900 / 900 3 / 3 Estimated Blood Loss 200 / 200 Wound Drainage 400 / 400 530 / 530 # 1 Right Knee 400 / 400 530 / 530 Other: # Voids 3 # Bowel Movements 0 0 Narrative: Right lower extremity: Clean dry dressings intact. Knee immobilizer in place. Distally intact sensation with active dorsiflexion and plantarflexion of foot Results - Labs CBC & Chem 7: 11/11/17 03:42 Microbiology 11/10/17 17:26 Tissue - Knee Acid Fast Bacilli Smear - Final No acid fast bacilli seen 11/10/17 16:56 Tissue - Knee Acid Fast Bacilli Smear - Final No acid fast bacilli seen 11/10/17 17:12 Tissue - Knee Acid Fast Bacilli Smear - Final No acid fast bacilli seen 11/10/17 16:56 Tissue - Knee Acid Fast Bacilli Smear - Final No acid fast bacilli seen 11/10/17 17:26 Tissue - Knee Gram Stain - Final 11/10/17 17:26 Tissue - Knee Wound Culture - Preliminary No growth in 24 hours 11/10/17 17:12 Tissue - Knee Gram Stain - Final 11/10/17 17:12 Tissue - Knee Wound Culture - Preliminary No growth in 24 hours 11/10/17 16:56 Tissue - Knee Gram Stain - Final 11/10/17 16:56 Tissue - Knee Wound Culture - Preliminary No growth in 24 hours 11/10/17 16:56 Tissue - Knee Gram Stain - Final 11/10/17 16:56 Tissue - Knee Wound Culture - Preliminary No growth in 24 hours 11/10/17 17:26 Tissue - Knee Fungal Smear - Final No fungal elements seen 11/10/17 16:56 Tissue - Knee Fungal Smear - Final No fungal elements seen 11/10/17 17:12 Tissue - Knee Fungal Smear - Final No fungal elements seen 11/10/17 16:56 Tissue - Knee Fungal Smear - Final No fungal elements seen Assessment and Plan - Assessment and Plan Revision right total knee arthroplasty POD 2 Ortho stable Xarelto low dose for 5 days,then resume pre op dosage D/C home HHC RN/PT today if cleared by physical therapy
[2017-11-12] MEDS: Morphine Inj 4 MG/ML Vial IV.PUSH PRN ×3 (07:33→21:20)
[2017-11-12] MEDS: Senna/Docusate Sodium 8.6/50 MG Tablet PO SCH ×3 (08:41→20:17)
[2017-11-12] MEDS: Rivaroxaban 10 MG Tablet PO SCH (09:58)
--- NOTE | 2017-11-12 10:21 | P.DCO ---
- Physical Therapy Physical Therapy: Gait training, Safety evaluation Knee: Total knee, Protocol: Right, Full weight bearing Right Lower Extremity Weight Bearing: Weight bearing as tolerated - Nursing Dressing changes: Daily dressing change, Coverderm/Primapore, Other (clean with alcohol and dry dressings) - Certification Need for Home Health services: I have seen patient Govind Cagle on 11/12/17. My clinical findings support the need for the requested home health care services because: Need for Home Health Services: Limited mobility due to disease progression Homebound Certification: I certify that my clinical findings support that this patient is homebound because: Homebound Certification: Post-op weakness
[2017-11-13] MEDS: Senna/Docusate Sodium 8.6/50 MG Tablet PO SCH (07:59)
[2017-11-13] MEDS: Rivaroxaban 10 MG Tablet PO SCH (07:59)
--- NOTE | 2017-11-13 09:18 | P.PNOP ---
Subjective Interval history: Progressing well with physical therapy. Pain is controlled. States he is ready to go home today Physical Exam Vital signs: Vital Signs 11/12/17 12:00 11/12/17 16:00 11/12/17 20:00 Temperature 97.4 F L 100.2 F H 99.1 F Pulse Rate 94 H 98 H 102 H Respiratory Rate 18 18 16 Blood Pressure 137/80 129/70 125/71 Pulse Oximetry 99 97 97 11/13/17 00:00 11/13/17 08:00 Temperature 97.9 F 97.9 F Pulse Rate 94 H 89 Respiratory Rate 18 21 Blood Pressure 122/70 119/64 Pulse Oximetry 95 96 Intake & Output 11/12/17 11/13/17 11/13/17 18:59 06:59 18:59 Intake Total 840 / 840 360 / 360 Output Total 1175 / 1175 Balance 840 / 840 -815 / -815 Weight 93 kg Intake: Oral 840 / 840 360 / 360 Output: Urine 1175 / 1175 Other: # Voids 3 Date of Last Bowel Movement 11/10/17 11/10/17 11/10/17 Results - Labs CBC & Chem 7: 11/11/17 03:42 Laboratory Results - last 24 hr 11/10/17 11:45 MTS Gel Crossmatch See Detail Microbiology 11/10/17 17:26 Tissue - Knee Gram Stain - Final 11/10/17 17:26 Tissue - Knee Wound Culture - Final No growth in 72 hours (aerobically and anaerobically ) 11/10/17 17:12 Tissue - Knee Gram Stain - Final 11/10/17 17:12 Tissue - Knee Wound Culture - Final No growth in 72 hours (aerobically and anaerobically ) 11/10/17 16:56 Tissue - Knee Gram Stain - Final 11/10/17 16:56 Tissue - Knee Wound Culture - Final No growth in 72 hours (aerobically and anaerobically ) 11/10/17 16:56 Tissue - Knee Gram Stain - Final 11/10/17 16:56 Tissue - Knee Wound Culture - Final No growth in 72 hours (aerobically and anaerobically ) Assessment and Plan - Problem List (1) Total knee replacement status Code(s): Z96.659 - Presence of unspecified artificial knee joint Status: Acute - Assessment and Plan Revision right total knee arthroplasty POD 3 Ortho stable Prescription of Sachse 10/325 is on the chart Xarelto low dose for 5 days,then resume pre op dosage D/C home [facility] RN/PT today if cleared by physical therapy
--- NOTE | 2017-11-13 12:54 | US ---
EXAM DATE: 11/13/2017 12:48 PM EDT AGE/SEX: 57 years / Male INDICATIONS: Bilateral leg swelling. Right leg pain. CLINICAL DATA: This is the patient's initial encounter. Patient reports that signs and symptoms have been present for 3 days and indicates a pain score of 3/10. MEDICAL/SURGICAL HISTORY: . Carpal tunnel syndrome on bilateral wrists. Deep vein thrombosis. P ulmonary embolus. Total knee replacement, right. Tonsillectomy. Rotator cuff repair. COMPARISON: POI, US LEG VENOUS DOPPLER, BILATERAL, 11/04/2017. . TECHNIQUE: Venous ultrasound of both lower extremities was performed from the inguinal ligament to t he proximal calf. Real-time, color Doppler and spectral tracing, compression and augmentation techni ques were used. FINDINGS: Right Leg: There is occlusive thrombus in the right superficial femoral vein which is noncompressibl e and demonstrates normal waveform. There is nonocclusive thrombus in the right popliteal vein which is partially compressible. A prominent lymph node is present in the groin region measuring up to 3.4 x 2.6 cm. Left Leg: There is occlusive thrombus in the distal superficial femoral vein which is noncompressibl e. This extends into the posterior tibial vein as well. There is nonocclusive thrombus in the more pr oximal and mid superficial femoral vein as well as the popliteal vein and peroneal veins. Other: None. CONCLUSION: 1. Bilateral deep venous thrombosis. Electronically signed by: Ad Barrera MD 11/13/2017 12:53 PM EDT
== END 2017-11-13 17:31 | disposition home health service (06) ==
LOC: HSDI 10:04 → N06 22:15 → UNDODISIN 11-11 13:37
PROVIDERS: ADMIT Orthopaedic Surgery Orthopaedic Surgery of the Spine; ATTEND Orthopaedic Surgery Orthopaedic Surgery of the Spine